=== PATIENT | female | born 1980 | race American Indian/Alaskan Native ===

== ENCOUNTER 2016-11-13 02:03 | Emergency (ER) | payer MEDICARE ==
[2016-11-13 02:42] VITALS: BP 129/78
[2016-11-13 04:11] LABS: Bilirubin,Urine NEG (Negative); Blood,Urine SM (Negative); Ketones,Urine TR mg/dL (Negative); Leukocyte Esterase,Urine NEG (Negative); Mucus,Urine FEW /HPF; Nitrite,Urine NEG (Negative); Protein,Urine <15 mg/dL mg/dL (Negative); RBC,Urine < 1.0 /HPF (0.0-6.0); Urobilinogen,Urine < 2.0 mg/dL (<2.0)
[2016-11-13 04:14] LABS: Basophils % (Auto) 0.9 % (0.0-1.8); Hematocrit 40.4 % (30.3-42.9); Hemoglobin 12.7 gm/dl (10.1-14.3); Mean Corpuscular HGB Conc 32 % (30-34); Mean Corpuscular Hemoglobin 26 pg (28-32); Mean Corpuscular Volume 83 fl (79-97); Platelet Count 256 K/mm3 (140-440); Red Blood Count 4.85 M/mm3 (3.65-5.03); Red Cell Distribution Width 14.1 % (13.2-15.2); White Blood Count 8.4 K/mm3 (4.5-11.0)
[2016-11-13 04:20] LABS: Alanine Aminotransferase 7 units/L (7-56); Albumin 4.1 g/dL (3.9-5); Albumin/Globulin Ratio 1.5 %; Alkaline Phosphatase 85 units/L (35-129); Anion Gap 19 mmol/L; Bilirubin,Total 0.2 mg/dL (0.1-1.2); Blood Urea Nitrogen 8 mg/dL (7-17); Calcium 8.2 mg/dL (8.4-10.2); Carbon Dioxide 23 mmol/L (22-30); Chloride 101.1 mmol/L (98-107); Glucose 82 mg/dL (65-100); Lipase 32 units/L (13-60); Potassium 3.7 mmol/L (3.6-5.0); Sodium 139 mmol/L (137-145); Total Protein 6.9 g/dL (6.3-8.2)
--- NOTE | 2016-11-15 07:32 | ED Elopement Review ---
ED Pt Elopement review - Results review Lab results: Laboratory Tests 11/13/16 11/13/16 11/13/16 03:29 03:38 03:38 WBC 8.4 RBC 4.85 Hgb 12.7 Hct 40.4 MCV 83 MCH 26 L MCHC 32 RDW 14.1 Plt Count 256 Lymph % (Auto) 42.1 H [place] % (Auto) 9.4 H Eos % (Auto) 4.0 Baso % (Auto) 0.9 Lymph # 3.6 [place] # 0.8 Eos # 0.3 Baso # 0.1 Seg Neutrophils % 43.6 Seg Neutrophils # 3.7 Sodium 139 Potassium 3.7 Chloride 101.1 Carbon Dioxide 23 Anion Gap 19 BUN 8 Creatinine 0.8 Estimated GFR > 60 BUN/Creatinine Ratio 10.00 Glucose 82 Calcium 8.2 L Total Bilirubin 0.2 AST 12 ALT 7 Alkaline Phosphatase 85 Total Protein 6.9 Albumin 4.1 Albumin/Globulin Ratio 1.5 Lipase 32 Urine Color Yellow Urine Turbidity Clear Urine pH 6.0 Ur Specific [place] 1.014 Urine Protein <15 mg/dl Urine Glucose (UA) Neg Urine Ketones Tr Urine Blood Sm Urine Nitrite Neg Urine Bilirubin Neg Urine Urobilinogen < 2.0 Ur Leukocyte Esterase Neg Urine WBC (Auto) 2.0 Urine RBC (Auto) < 1.0 U Epithel Cells (Auto) 5.0 Urine Mucus Few - Call Back decision Pt Call Back Decision: No action required
== END 2016-11-13 03:40 | disposition left against medical advice (07) ==
LOC: ED 02:03
DX: R30.0 Dysuria (principal); F20.9 Schizophrenia, unspecified; J45.909 Unspecified asthma, uncomplicated; F17.200 Nicotine dependence, unspecified, uncomplicated; F12.90 Cannabis use, unspecified, uncomplicated; Z88.8 Allergy status to other drugs, medicaments and biological substances; Z53.21 Procedure and treatment not carried out due to patient leaving prior to being seen by health care provider
CPT/HCPCS: 36415; 80053; 81001; 83690; 85025

== ENCOUNTER 2016-11-19 18:42 | Emergency (ER) | payer MEDICARE | END 2016-11-19 20:42 | disposition left against medical advice (07) | LOC: ED 18:42 | DX: T76.22XA Child sexual abuse, suspected, initial encounter (principal); Z53.21 Procedure and treatment not carried out due to patient leaving prior to being seen by health care provider ==

== ENCOUNTER 2016-12-03 16:42 | Emergency (ER) | payer MEDICARE ==
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
[2016-12-03] MEDS ORDERED: MOTRIN PO ONE (20:01)
[2016-12-03 20:59] VITALS: BP 110/73
== END 2016-12-03 21:00 | disposition home or self-care (01) ==
LOC: ED 16:42
DX: M62.830 Muscle spasm of back (principal); M54.5 Low back pain; G89.29 Other chronic pain; M54.2 Cervicalgia; F17.200 Nicotine dependence, unspecified, uncomplicated; F20.9 Schizophrenia, unspecified; J45.909 Unspecified asthma, uncomplicated; E04.9 Nontoxic goiter, unspecified; Z88.8 Allergy status to other drugs, medicaments and biological substances
CPT/HCPCS: 99282

== ENCOUNTER 2017-03-17 05:29 | Emergency (ER) | payer MEDICARE ==
[2017-03-17 06:17] VITALS: BP 131/85
[2017-03-17 07:41] LABS: Urine Drugs of Abuse Note Disclamer
[2017-03-17 08:02] LABS: Bacteria,Urine 1+ /HPF (Negative); Bilirubin,Urine NEG (Negative); Blood,Urine NEG (Negative); Ketones,Urine TR mg/dL (Negative); Leukocyte Esterase,Urine SM (Negative); Mucus,Urine FEW /HPF; Nitrite,Urine NEG (Negative); Protein,Urine <15 mg/dL mg/dL (Negative)
== END 2017-03-17 06:59 | disposition left against medical advice (07) ==
LOC: ED 05:29
DX: Z00.8 Encounter for other general examination (principal); J45.909 Unspecified asthma, uncomplicated; F20.9 Schizophrenia, unspecified; F17.200 Nicotine dependence, unspecified, uncomplicated; Z88.8 Allergy status to other drugs, medicaments and biological substances; Z53.21 Procedure and treatment not carried out due to patient leaving prior to being seen by health care provider
CPT/HCPCS: 80307; 81001

== ENCOUNTER 2017-05-09 13:43 | Emergency (ER) | payer MEDICARE ==
[2017-05-09 13:58] VITALS: BP 145/89
--- NOTE | 2017-05-09 14:53 | XRay Report ---
LEFT KNEE: Trauma, pain. The bony architecture is intact without evidence of fracture or dislocation. No significant soft tissue abnormality is seen. IMPRESSION: Normal left knee.
[2017-05-09] MEDS ORDERED: TORADOL IM ONE (17:58)
--- NOTE | 2017-05-09 18:41 | Emergency Department Report ---
Entered by CAYETANO LEUNG, acting as scribe for ELOISA HERNANDEZ NP. ED Lower Extremity HPI - General Chief Complaint: Extremity Injury, Lower Stated Complaint: LEFT KNEE INJURY Time Seen by Provider: 05/09/17 17:27 Source: patient Mode of arrival: Ambulatory Limitations: Physical Limitation - History of Present Illness Initial Comments: This is a 37 y/o female, nontoxic, well nourished in appearance, no acute signs of distress with a PMHx of asthma, schizophrenia, and thyroid goiter presents to the ED c/o left knee pain that began this afternoon. Patient states she was running from a bee while doing community service, fell, and subsequently landed on her left knee. Rates pain a 10/10 in severity, which she describes as sharp and aching in quality. Aggravated with movement, palpation, and weight bearing, and alleviated with immobilization. Denies head trauma, LOC, numbness, tingling , fever, chills, chest pain, SOB, headache and dizziness. Allergic to aripiprazole, riseridone, ziprassidone HCl and ziprasidone mesylate. MD Complaint: knee injury (left) -: This afternoon Injury: Knee: Left Type of Injury: unknown Place: street/outdoors Severity: severe Severity scale (0 -10): 10 Improves With: immobilization Worsens With: weight bearing, movement, palpation Context: running Associated Symptoms: able to partially bear weight. denies: snap/pop sensation , swelling, numbness, tingling Treatments Prior to Arrival: cold therapy - Related Data Home Medications Medication Instructions Recorded Confirmed Last Taken Haloperidol Decanoate (Nf) [Haldol 200 mg IM QMONTH 05/18/14 06/28/15 06/03/15 Decanoate] Benztropine [Cogentin] 1 mg PO BID 06/28/15 06/28/15 Unknown Citalopram [celeXA] 20 mg PO QDAY 06/28/15 06/28/[address] [DepaKOTE DR] 500 mg PO HS 06/28/15 06/28/15 Unknown Divalproex ER [DepaKOTE ER] 250 mg PO DAILY 06/28/15 06/28/15 Unknown Haloperidol [Haldol] 2 mg PO BID 06/28/15 06/28/15 Unknown Previous Rx's Medication Instructions Recorded Last Taken Type Docusate Sodium [Colace CAP] 100 mg PO BID PRN #30 capsule 06/28/15 Unknown Rx Pramoxine 1% [Proctofoam] 1 applicatio TP 5XD PRN #1 bottle 06/28/15 Unknown Rx Acetaminophen/Codeine [Tylenol #3] 1 tab PO Q6H PRN #20 tab 11/17/15 Unknown Rx Ibuprofen [Motrin] 600 mg PO Q8H PRN #40 tablet 11/17/15 Unknown Rx Cyclobenzaprine [Flexeril 10 MG 10 mg PO TID PRN #15 tablet 12/03/16 Unknown Rx TAB] Ibuprofen [Motrin 800 MG tab] 800 mg PO TID PRN #15 tablet 12/03/16 Unknown Rx Ibuprofen [Motrin 600 MG tab] 600 mg PO Q8H PRN #30 tablet 05/09/17 Unknown Rx Allergies Allergy/AdvReac Type Severity Reaction Status Date / Time aripiprazole [From Abilify] Allergy Vomiting Verified 01/04/14 12:08 risperidone [From Risperdal] Allergy Bleeding Verified 01/04/14 12:09 ziprasidone HCl [From Geodon] Allergy Vomiting Verified 11/13/16 02:37 ziprasidone mesylate Allergy Vomiting Verified 11/13/16 02:37 [From Geodon] ED Review of Systems Comment: All other systems reviewed and negative Constitutional: denies: chills, fever Eyes: denies: eye pain, eye discharge, vision change ENT: denies: ear pain, throat pain Respiratory: denies: cough, orthopnea, shortness of breath, SOB with exertion, SOB at rest, stridor, wheezing Cardiovascular: denies: chest pain, palpitations, dyspnea on exertion, orthopnea , edema, syncope, paroxysmal nocturnal dyspnea Endocrine: no symptoms reported Gastrointestinal: denies: abdominal pain, nausea, vomiting, diarrhea Genitourinary: denies: urgency, dysuria, discharge Musculoskeletal: arthralgia (LT knee pain). denies: back pain, joint swelling, myalgia Skin: denies: rash, lesions Neurological: denies: headache, weakness, numbness, paresthesias Psychiatric: denies: anxiety, depression Hematological/Lymphatic: denies: easy bleeding, easy bruising ED Past Medical Hx - Past Medical History Previous Medical History?: Yes Hx Psychiatric Treatment: Yes (schizophrenia) Hx Asthma: Yes Additional medical history: throid goiter, ectopic 2006. back pain - Surgical History Past Surgical History?: Yes Additional Surgical History: ectopic 2006 - Family History Family history: no significant - Social History Smoking Status: Current Every Day Smoker Substance Use Type: None - Medications Home Medications: Home Medications Medication Instructions Recorded Confirmed Last Taken Type Haloperidol Decanoate (Nf) [Haldol 200 mg IM QMONTH 05/18/14 06/28/15 06/03/15 History Decanoate] Benztropine [Cogentin] 1 mg PO BID 06/28/15 06/28/15 Unknown History Citalopram [celeXA] 20 mg PO QDAY 06/28/15 06/28/[address] [DepaKOTE DR] 500 mg PO HS 06/28/15 06/28/15 Unknown History Divalproex ER [DepaKOTE ER] 250 mg PO DAILY 06/28/15 06/28/15 Unknown History Docusate Sodium [Colace CAP] 100 mg PO BID PRN #30 capsule 06/28/15 Unknown Rx Haloperidol [Haldol] 2 mg PO BID 06/28/15 06/28/15 Unknown History Pramoxine 1% [Proctofoam] 1 applicatio TP 5XD PRN #1 bottle 06/28/15 Unknown Rx Acetaminophen/Codeine [Tylenol #3] 1 tab PO Q6H PRN #20 tab 11/17/15 Unknown Rx Ibuprofen [Motrin] 600 mg PO Q8H PRN #40 tablet 11/17/15 Unknown Rx Cyclobenzaprine [Flexeril 10 MG 10 mg PO TID PRN #15 tablet 12/03/16 Unknown Rx TAB] Ibuprofen [Motrin 800 MG tab] 800 mg PO TID PRN #15 tablet 12/03/16 Unknown Rx Ibuprofen [Motrin 600 MG tab] 600 mg PO Q8H PRN #30 tablet 05/09/17 Unknown Rx ED Physical Exam - General Limitations: Physical Limitation General appearance: alert, in no apparent distress - Head Head exam: Present: atraumatic, normocephalic - Eye Eye exam: Present: normal appearance, PERRL, EOMI Pupils: Present: normal accommodation - ENT ENT exam: Present: normal exam, normal orophraynx, mucous membranes moist, TM's normal bilaterally, normal external ear exam - Neck Neck exam: Present: normal inspection, full ROM. Absent: tenderness, meningismus, lymphadenopathy, thyromegaly - Respiratory Respiratory exam: Present: normal lung sounds bilaterally. Absent: respiratory distress, wheezes, rales, rhonchi, stridor, chest wall tenderness, accessory muscle use, decreased breath sounds, prolonged expiratory - Cardiovascular Cardiovascular Exam: Present: regular rate, normal rhythm, normal heart sounds. Absent: bradycardia, tachycardia, irregular rhythm, systolic murmur, diastolic murmur, rubs, gallop - GI/Abdominal GI/Abdominal exam: Present: soft, normal bowel sounds. Absent: distended - Rectal Rectal exam: Present: deferred - Extremities Exam Extremities exam: Present: full ROM (limited and painful LT knee ROM), tenderness (LT knee), normal capillary refill. Absent: normal inspection, pedal edema, joint swelling, calf tenderness - Expanded Lower Extremity Exam Left Hip exam: Present: normal inspection, full ROM, external rotation, internal rotation, pelvic stability. Absent: tenderness, swelling, abrasion, laceration , ecchymosis, deformity, crepidus, dislocation, erythema, shortening Upper Leg exam: Present: normal inspection, full ROM. Absent: tenderness, swelling, abrasion, laceration, ecchymosis, deformity, crepidus, dislocation, erythema Knee exam: Present: full ROM (limited and painful ROM), tenderness, full knee extension. Absent: normal inspection, swelling, abrasion, laceration, ecchymosis, deformity, crepidus, dislocation, erythema, effusion, pain w/ pronation/supination, posterior draw sign, pain/laxity with valgus, pain/laxity with varus Lower Leg exam: Present: normal inspection, full ROM. Absent: tenderness, swelling, abrasion, laceration, ecchymosis, deformity, crepidus, dislocation, erythema, palpable cord, Kristina's sign Ankle exam: Present: normal inspection, full ROM. Absent: tenderness, swelling , abrasion, laceration, ecchymosis, deformity, crepidus, dislocation, erythema, anterior draw sign Foot/Toe exam: Present: normal inspection, full ROM. Absent: tenderness, swelling, abrasion, laceration, ecchymosis, deformity, crepidus, dislocation, erythema, amputation, puncture wound, foreign body, calcaneal tenderness, tenderness at base of 5th metatarsal, nail avulsion, subungual hematoma Neuro vascular tendon exam: Present: no vascular compromise. Absent: pulse deficit, abnormal cap refill, motor deficit, sensory deficit, tendon deficit, extremity cold to touch, pallor, abnormal 2-point discrimination, decreased fine /light touch, foot drop, peroneal nerve deficit, significant pain with passive ROM of distal joint Gait: Positive: observed and limited by pain - Back Exam Back exam: Present: normal inspection, full ROM. Absent: tenderness, CVA tenderness (R), CVA tenderness (L), muscle spasm, paraspinal tenderness, vertebral tenderness, rash noted - Neurological Exam Neurological exam: Present: alert, oriented X3, CN II-XII intact, normal gait ( limited gait due to left knee pain), reflexes normal. Absent: motor sensory deficit - Psychiatric Psychiatric exam: Present: normal affect, normal mood - Skin Skin exam: Present: warm, dry, intact. Absent: rash ED Course Vital Signs 05/09/17 13:54 Temperature 98.9 F Pulse Rate 92 H Respiratory 24 Rate Blood Pressure 145/89 O2 Sat by Pulse 99 Oximetry - Reevaluation(s) Reevaluation #1: 05/09/17 18:16 Patient is able to speak in full sentences with no signs of distress noted. ED Lower Extremity MDM - Medical Decision Making ED course; this is a 37-year-old female that presents with left knee strain 1- patient was examined myself. Patient received x-ray of left knee with normal findings dictated by Dr. Atwood. Patient received Toradol 60 mg IM the ED for pain. Patient was notified of x-ray findings with no further questions or by the patient. 2- patient receive any immobilizer and crutches. Crutches has been educated by the nurse. 3- patient received ibuprofen at the time of discharge 4- patient was instructed to follow-up with a orthopedic doctor in 3-5 days or symptoms such as joint swelling, joint redness, numbness, tingling, fever, chills, chest pain, shortness of breath, nausea or vomiting return to emergency room as soon as possible. 5- patient was also instructed to rest, elevate, ice extremity. 6- At time time of discharge, the patient does not seem toxic or ill in appearance. No acute signs of distress noted. Patient agrees to discharge treatment plan of care. No further questions noted by the patient. ED Disposition Clinical Impression: Knee strain Qualifiers: Encounter type: initial encounter Laterality: left Qualified Code(s): S86.912A - Strain of unspecified muscle(s) and tendon(s) at lower leg level, left leg, initial encounter Disposition: TO HOME OR SELFCARE Is pt being admited?: No Does the pt Need Aspirin: No Condition: Stable Instructions: Knee Pain (ED), Knee Immobilizer (ED), Crutch Instructions (ED), Ibuprofen (By mouth) Additional Instructions: follow-up with a orthopedic doctor in 3-5 days or symptoms such as joint swelling, joint redness, numbness, tingling, fever, chills, chest pain, shortness of breath, nausea or vomiting return to emergency room as soon as possible. Rest, elevate, and ice extremity Prescriptions: Ibuprofen [Motrin 600 MG tab] 600 mg PO Q8H PRN #30 tablet PRN Reason: Pain Referrals: PRIMARY CAREMD [Primary Care Provider] - 3-5 Days HOMERO WRIGHT MD [Staff Physician] - 3-5 Days [facility] [Outside] - 3-5 Days [facility] [Outside] - 3-5 Days MEHDI AJ MD [Staff Physician] - 3-5 Days Forms: Work/School Release Form(ED) This documentation as recorded by the XOCHITL alcocer JASMINE,accurately reflects the service I personally performed and the decisions made by ,ELOISA HERNANDEZ, BUDDHIST MONK.
== END 2017-05-09 18:45 | disposition home or self-care (01) ==
LOC: ED 13:43
DX: S86.912A Strain of unspecified muscle(s) and tendon(s) at lower leg level, left leg, initial encounter (principal); J45.909 Unspecified asthma, uncomplicated; F20.9 Schizophrenia, unspecified; F17.200 Nicotine dependence, unspecified, uncomplicated; Z88.8 Allergy status to other drugs, medicaments and biological substances; W18.00XA Striking against unspecified object with subsequent fall, initial encounter; Y93.89 Activity, other specified; Y92.89 Other specified places as the place of occurrence of the external cause; Y99.8 Other external cause status
CPT/HCPCS: 29505; 73562; 96372; 99283; J1885

== ENCOUNTER 2017-07-13 01:13 | Emergency (ER) | payer MEDICARE | END 2017-07-13 01:32 | disposition left against medical advice (07) | LOC: ED 01:13 | DX: H53.8 Other visual disturbances (principal); Z53.21 Procedure and treatment not carried out due to patient leaving prior to being seen by health care provider ==

== ENCOUNTER 2017-09-26 00:23 | Emergency (ER) | payer MEDICARE | END 2017-09-26 01:00 | disposition left against medical advice (07) | LOC: ED 00:23 | DX: R10.9 Unspecified abdominal pain (principal); Z53.21 Procedure and treatment not carried out due to patient leaving prior to being seen by health care provider ==

== ENCOUNTER 2017-09-26 07:36 | Emergency (ER) | payer MEDICARE ==
[2017-09-26 07:50] VITALS: BP 125/85
[2017-09-26 08:22] LABS: Bilirubin,Urine NEG (Negative); Blood,Urine NEG (Negative); Color,Urine Yellow (Yellow); Mucus,Urine FEW /HPF; Nitrite,Urine NEG (Negative); Protein,Urine <15 mg/dL mg/dL (Negative); Urobilinogen,Urine < 2.0 mg/dL (<2.0)
[2017-09-26 08:23] LABS: HCG Qualitative,Urine Negative (Negative)
[2017-09-26 08:31] LABS: Basophils # (Auto) 0.1 K/mm3 (0.0-0.1); Basophils % (Auto) 0.7 % (0.0-1.8); Eosinophils # (Auto) 0.2 K/mm3 (0.0-0.4); Eosinophils % (Auto) 2.6 % (0.0-4.3); Hemoglobin 13.4 gm/dl (10.1-14.3); Lymphocytes # (Auto) 3.1 K/mm3 (1.2-5.4); Lymphocytes % (Auto) 39.3 % (13.4-35.0); Mean Corpuscular HGB Conc 33 % (30-34); Mean Corpuscular Hemoglobin 27 pg (28-32); Mean Corpuscular Volume 83 fl (79-97); Monocytes # (Auto) 0.7 K/mm3 (0.0-0.8); Monocytes % (Auto) 9.4 % (0.0-7.3); Platelet Count 251 K/mm3 (140-440); Red Blood Count 4.97 M/mm3 (3.65-5.03); Red Cell Distribution Width 14.6 % (13.2-15.2)
[2017-09-26 08:33] LABS: BUN/Creatinine Ratio 11; Blood Urea Nitrogen 8 mg/dL (7-17); Calcium 8.8 mg/dL (8.4-10.2); Hemolysis Index 6
--- NOTE | 2017-09-26 09:30 | Emergency Department Report ---
ED Psych HPI - General Chief Complaint: Psych Stated Complaint: PARASITE SUCKING BLOOD Time Seen by Provider: 09/26/17 09:18 Source: patient Mode of arrival: Ambulatory Limitations: No Limitations - History of Present Illness Initial Comments: 37-year-old female the past medical history of schizophrenia and asthma presents to the hospital chest and left arm. She denies fever, nausea, vomiting , or diarrhea. Patient's been compliant with her in the [place] shot for schizophrenia last dose provided on September 10. Patient hears voices all the time he denies any acute changes. Patient denies suicidal or homicidal ideation. Patient was here last night with similar symptoms but eloped prior to evaluation. Patient feels like she needs surgery to get rid of the parasites. - Related Data Home Medications Medication Instructions Recorded Confirmed Last Taken Haloperidol Decanoate (Nf) [Haldol 200 mg IM QMONTH 05/18/14 06/28/15 06/03/15 Decanoate] Benztropine [Cogentin] 1 mg PO BID 06/28/15 06/28/15 Unknown Citalopram [celeXA] 20 mg PO QDAY 06/28/15 06/28/[address] [DepaKOTE DR] 500 mg PO HS 06/28/15 06/28/15 Unknown Divalproex ER [DepaKOTE ER] 250 mg PO DAILY 06/28/15 06/28/15 Unknown Haloperidol [Haldol] 2 mg PO BID 06/28/15 06/28/15 Unknown Previous Rx's Medication Instructions Recorded Last Taken Type Docusate Sodium [Colace CAP] 100 mg PO BID PRN #30 capsule 06/28/15 Unknown Rx Pramoxine 1% [Proctofoam] 1 applicatio TP 5XD PRN #1 bottle 06/28/15 Unknown Rx Acetaminophen/Codeine [Tylenol #3] 1 tab PO Q6H PRN #20 tab 11/17/15 Unknown Rx Ibuprofen [Motrin] 600 mg PO Q8H PRN #40 tablet 11/17/15 Unknown Rx Cyclobenzaprine [Flexeril 10 MG 10 mg PO TID PRN #15 tablet 12/03/16 Unknown Rx TAB] Ibuprofen [Motrin 800 MG tab] 800 mg PO TID PRN #15 tablet 12/03/16 Unknown Rx Ibuprofen [Motrin 600 MG tab] 600 mg PO Q8H PRN #30 tablet 05/09/17 Unknown Rx Allergies Allergy/AdvReac Type Severity Reaction Status Date / Time aripiprazole [From Abilify] Allergy Vomiting Verified 01/04/14 12:08 risperidone [From Risperdal] Allergy Bleeding Verified 01/04/14 12:09 ziprasidone HCl [From Geodon] Allergy Vomiting Verified 11/13/16 02:37 ziprasidone mesylate Allergy Vomiting Verified 11/13/16 02:37 [From Geodon] ED Review of Systems ROS: Stated complaint: PARASITE SUCKING BLOOD Other details as noted in HPI Comment: All other systems reviewed and negative Other: Constitutional: No fevers chills Eyes: No eye pain visual changes ENT: No ear pain or throat pain Neck: Denies pain Respiratory: Denies cough wheezing shortness of breath Cardiovascular: Denies palpitations, syncope GI: Denies abdominal pain, nausea, vomiting, diarrhea : Denies dysuria, Musculoskeletal: Denies back pain, joint swelling Skin: Denies rash, lesions, erythema Neurologic: Denies headache, numbness, weakness Psychiatric: as per hpi ED Past Medical Hx - Past Medical History Previous Medical History?: Yes Hx Psychiatric Treatment: Yes (schizophrenia) Hx Asthma: Yes Additional medical history: thyroid goiter, ectopic 2006. back pain, Anemia - Surgical History Past Surgical History?: Yes Additional Surgical History: ectopic 2006 - Social History Smoking Status: Current Every Day Smoker Substance Use Type: Alcohol, Marijuana, Prescribed - Medications Home Medications: Home Medications Medication Instructions Recorded Confirmed Last Taken Type Haloperidol Decanoate (Nf) [Haldol 200 mg IM QMONTH 05/18/14 06/28/15 06/03/15 History Decanoate] Benztropine [Cogentin] 1 mg PO BID 06/28/15 06/28/15 Unknown History Citalopram [celeXA] 20 mg PO QDAY 06/28/15 06/28/[address] [DepaKOTE DR] 500 mg PO HS 06/28/15 06/28/15 Unknown History Divalproex ER [DepaKOTE ER] 250 mg PO DAILY 06/28/15 06/28/15 Unknown History Docusate Sodium [Colace CAP] 100 mg PO BID PRN #30 capsule 06/28/15 Unknown Rx Haloperidol [Haldol] 2 mg PO BID 06/28/15 06/28/15 Unknown History Pramoxine 1% [Proctofoam] 1 applicatio TP 5XD PRN #1 bottle 06/28/15 Unknown Rx Acetaminophen/Codeine [Tylenol #3] 1 tab PO Q6H PRN #20 tab 11/17/15 Unknown Rx Ibuprofen [Motrin] 600 mg PO Q8H PRN #40 tablet 11/17/15 Unknown Rx Cyclobenzaprine [Flexeril 10 MG 10 mg PO TID PRN #15 tablet 12/03/16 Unknown Rx TAB] Ibuprofen [Motrin 800 MG tab] 800 mg PO TID PRN #15 tablet 12/03/16 Unknown Rx Ibuprofen [Motrin 600 MG tab] 600 mg PO Q8H PRN #30 tablet 05/09/17 Unknown Rx ED Physical Exam - General Limitations: No Limitations - Other Other exam information: General: No limitations, patient is alert in no acute distress Head exam: Atraumatic, normocephalic Eyes exam: Normal appearance ENT: Moist mucous membrane, normal oropharynx Neck exam: Normal inspection, full range of motion Respiratory exam: Clear to auscultation bilateral, no wheezes, rales, crackles Cardiovascular: Normal rate and rhythm, normal heart sounds Abdomen: Soft, nondistended, and nontender, with normal bowel sounds, no rebound, or guarding Extremity: Full range of motion normal inspection no deformity Back: Normal Inspection, full range of motion, no tenderness Neurologic: Alert, oriented x3, cranial nerves intact, no motor or sensory deficit Psychiatric: normal affect, normal mood Skin: Warm, dry, intact ED Course Vital Signs 09/26/17 07:46 Temperature 97.9 F Pulse Rate 93 H Respiratory 18 Rate Blood Pressure 125/85 O2 Sat by Pulse 99 Oximetry - Consultations Consultation #1: 09/26/17 09:30 Case discussed with Linda with mental health. We'll evaluate patient ED Medical Decision Making - Lab Data Result diagrams: 09/26/17 08:02 09/26/17 08:02 Lab Results 09/26/17 09/26/17 09/26/17 Range/Units 08:02 08:02 08:11 WBC 8.0 (4.5-11.0) K/mm3 RBC 4.97 (3.65-5.03) M/mm3 Hgb 13.4 (10.1-14.3) gm/dl Hct 41.0 (30.3-42.9) % MCV 83 (79-97) fl MCH 27 L (28-32) pg MCHC 33 (30-34) % RDW 14.6 (13.2-15.2) % Plt Count 251 (140-440) K/mm3 Lymph % (Auto) 39.3 H (13.4-35.0) % [place] % (Auto) 9.4 H (0.0-7.3) % Eos % (Auto) 2.6 (0.0-4.3) % Baso % (Auto) 0.7 (0.0-1.8) % Lymph # 3.1 (1.2-5.4) K/mm3 [place] # 0.7 (0.0-0.8) K/mm3 Eos # 0.2 (0.0-0.4) K/mm3 Baso # 0.1 (0.0-0.1) K/mm3 Seg Neutrophils % 48.0 (40.0-70.0) % Seg Neutrophils # 3.8 (1.8-7.7) K/mm3 Sodium 137 (137-145) mmol/L Potassium 3.9 (3.6-5.0) mmol/L Chloride 100.7 (98-107) mmol/L Carbon Dioxide 22 (22-30) mmol/L Anion Gap 18 mmol/L BUN 8 (7-17) mg/dL Creatinine 0.7 (0.7-1.2) mg/dL Estimated GFR > 60 ml/min BUN/Creatinine Ratio 11 % Glucose 89 (65-100) mg/dL Calcium 8.8 (8.4-10.2) mg/dL Urine Color Yellow (Yellow) Urine Turbidity Clear (Clear) Urine pH 7.0 (5.0-7.0) Ur Specific [place] 1.013 (1.003-1.030) Urine Protein <15 mg/dl (Negative) mg/dL Urine Glucose (UA) Neg (Negative) mg/dL Urine Ketones Neg (Negative) mg/dL Urine Blood Neg (Negative) Urine Nitrite Neg (Negative) Urine Bilirubin Neg (Negative) Urine Urobilinogen < 2.0 (<2.0) mg/dL Ur Leukocyte Esterase Neg (Negative) Urine WBC (Auto) 2.0 (0.0-6.0) /HPF Urine RBC (Auto) 5.0 (0.0-6.0) /HPF U Epithel Cells (Auto) 4.0 (0-13.0) /HPF Urine Mucus Few /HPF Urine HCG, Qual Negative (Negative) - Medical Decision Making Patient is alert and oriented. Goal oriented. Station needs to leave to go pay her bills. Mental health consultation and treated patient does not have any acute suicidal homicidal ideation therefore does not require a 1013. Patient refused chest x-ray. EKG canceled since patient does not have chest pain at this time. Symptoms are related to her delusions about parasites and no actual pain reported. Patient having delusions about parasites. Placed a call her on psychiatrist and establish follow-up. UDS and alcohol level pending since it is down due to maintenance. Patient does not appear to be acutely intoxicated and therefore will be discharged. She denies alcohol or drug - Differential Diagnosis delusions, psychosis, infection, schizophrenia Critical Care Time: No Critical care attestation.: If time is entered above; I have spent that time in minutes in the direct care of this critically ill patient, excluding procedure time. ED Disposition Clinical Impression: Schizophrenia, Delusions of parasitosis Disposition: DC-01 TO HOME OR SELFCARE Is pt being admited?: No Does the pt Need Aspirin: No Condition: Stable Instructions: Schizophrenia (ED) Additional Instructions: Continue your current outpatient psychiatric treatment. Contact your psychiatrist for more urgent follow-up. Please return if symptoms worsen as indicated by your discharge instructions Referrals: your, psychiatrist [Other] - 2-3 Days Time of Disposition: 10:17
[2017-09-26 11:01] LABS: Amphetamine Screen,Urine PRESUMPTIVE NEGATIVE; Benzodiazepines Screen,Urine PRESUMPTIVE NEGATIVE; Cocaine Screen,Urine PRESUMPTIVE NEGATIVE; Methadone Screen,Urine PRESUMPTIVE NEGATIVE; Opiate Screen,Urine PRESUMPTIVE NEGATIVE
[2017-09-26 11:13] LABS: Cannabinoid Screen,Urine PRESUMPTIVE POSITIVE
== END 2017-09-26 10:45 | disposition home or self-care (01) ==
LOC: ED 07:36
DX: F20.9 Schizophrenia, unspecified (principal); F22 Delusional disorders; J45.909 Unspecified asthma, uncomplicated; F12.10 Cannabis abuse, uncomplicated; F17.200 Nicotine dependence, unspecified, uncomplicated; Z88.8 Allergy status to other drugs, medicaments and biological substances
CPT/HCPCS: 36415; 80048; 80307; 81001; 81025; 85025; 99284; G0480; 80320

== ENCOUNTER 2017-10-04 06:10 | Emergency (ER) | payer MEDICARE ==
[2017-10-04 07:27] LABS: Basophils # (Auto) 0.1 K/mm3 (0.0-0.1); Basophils % (Auto) 0.7 % (0.0-1.8); Eosinophils # (Auto) 0.2 K/mm3 (0.0-0.4); Eosinophils % (Auto) 2.8 % (0.0-4.3); Hemoglobin 12.8 gm/dl (10.1-14.3); Lymphocytes # (Auto) 2.6 K/mm3 (1.2-5.4); Lymphocytes % (Auto) 32.2 % (13.4-35.0); Mean Corpuscular HGB Conc 33 % (30-34); Mean Corpuscular Hemoglobin 27 pg (28-32); Mean Corpuscular Volume 84 fl (79-97); Monocytes # (Auto) 0.9 K/mm3 (0.0-0.8); Monocytes % (Auto) 11.6 % (0.0-7.3); Platelet Count 222 K/mm3 (140-440); Red Blood Count 4.67 M/mm3 (3.65-5.03); Red Cell Distribution Width 15.7 % (13.2-15.2)
[2017-10-04 07:45] LABS: BUN/Creatinine Ratio 9; Blood Urea Nitrogen 7 mg/dL (7-17); Calcium 8.4 mg/dL (8.4-10.2); Hemolysis Index 3
--- NOTE | 2017-10-04 10:30 | Emergency Department Report ---
ED General Adult HPI - General Chief complaint: Psych Stated complaint: MH EVAL Time Seen by Provider: 10/04/17 09:57 Source: patient, EMS (ems notes not available at time of chart dictation), RN notes reviewed, old records reviewed Mode of arrival: Ambulatory Limitations: No Limitations - History of Present Illness Initial comments: This is a 37-year-old female, the patient is previously unknown to this provider , has a past medical history of psychiatric disease, and presents to the ER with a complaint of anxiety and hallucinations. The patient denies headache, neck pain, chest pain, abdominal pain, shortness of breath, irritative urinary symptoms. She denies overdose, she denies homicidality, she denies suicidality. She reports that she contacted 911 "because I panicked." Her symptoms are resolved, they do not radiate anywhere, they did not have any exacerbating factors, and they were relieved without intervention. -: Sudden Severity scale (0 -10): 0 Consistency: now resolved Improves with: none Worsens with: none Associated Symptoms: denies: confusion, chest pain, cough, diaphoresis, fever/ chills, headaches, loss of appetite, malaise, nausea/vomiting, rash, seizure, shortness of breath, syncope, weakness - Related Data Home Medications Medication Instructions Recorded Confirmed Last Taken Haloperidol Decanoate (Nf) [Haldol 200 mg IM QMONTH 05/18/14 06/28/15 06/03/15 Decanoate] Benztropine [Cogentin] 1 mg PO BID 06/28/15 06/28/15 Unknown Citalopram [celeXA] 20 mg PO QDAY 06/28/15 06/28/[address] [DepaKOTE DR] 500 mg PO HS 06/28/15 06/28/15 Unknown Divalproex ER [DepaKOTE ER] 250 mg PO DAILY 06/28/15 06/28/15 Unknown Haloperidol [Haldol] 2 mg PO BID 06/28/15 06/28/15 Unknown Previous Rx's Medication Instructions Recorded Last Taken Type Docusate Sodium [Colace CAP] 100 mg PO BID PRN #30 capsule 06/28/15 Unknown Rx Pramoxine 1% [Proctofoam] 1 applicatio TP 5XD PRN #1 bottle 06/28/15 Unknown Rx Acetaminophen/Codeine [Tylenol #3] 1 tab PO Q6H PRN #20 tab 11/17/15 Unknown Rx Ibuprofen [Motrin] 600 mg PO Q8H PRN #40 tablet 11/17/15 Unknown Rx Cyclobenzaprine [Flexeril 10 MG 10 mg PO TID PRN #15 tablet 12/03/16 Unknown Rx TAB] Ibuprofen [Motrin 800 MG tab] 800 mg PO TID PRN #15 tablet 12/03/16 Unknown Rx Ibuprofen [Motrin 600 MG tab] 600 mg PO Q8H PRN #30 tablet 05/09/17 Unknown Rx Allergies Allergy/AdvReac Type Severity Reaction Status Date / Time aripiprazole [From Abilify] Allergy Vomiting Verified 10/04/17 07:08 risperidone [From Risperdal] Allergy Bleeding Verified 10/04/17 07:08 ziprasidone HCl [From Geodon] Allergy Vomiting Verified 10/04/17 07:08 ziprasidone mesylate Allergy Vomiting Verified 10/04/17 07:08 [From Geodon] ED Review of Systems ROS: Stated complaint: MH EVAL Other details as noted in HPI ED Past Medical Hx - Past Medical History Hx Psychiatric Treatment: Yes (schizophrenia) Hx Asthma: Yes Additional medical history: thyroid goiter, ectopic 2006. back pain, Anemia - Surgical History Additional Surgical History: ectopic 2006 - Social History Smoking Status: Current Every Day Smoker - Medications Home Medications: Home Medications Medication Instructions Recorded Confirmed Last Taken Type Haloperidol Decanoate (Nf) [Haldol 200 mg IM QMONTH 05/18/14 06/28/15 06/03/15 History Decanoate] Benztropine [Cogentin] 1 mg PO BID 06/28/15 06/28/15 Unknown History Citalopram [celeXA] 20 mg PO QDAY 06/28/15 06/28/[address] [DepaKOTE DR] 500 mg PO HS 06/28/15 06/28/15 Unknown History Divalproex ER [DepaKOTE ER] 250 mg PO DAILY 06/28/15 06/28/15 Unknown History Docusate Sodium [Colace CAP] 100 mg PO BID PRN #30 capsule 06/28/15 Unknown Rx Haloperidol [Haldol] 2 mg PO BID 06/28/15 06/28/15 Unknown History Pramoxine 1% [Proctofoam] 1 applicatio TP 5XD PRN #1 bottle 06/28/15 Unknown Rx Acetaminophen/Codeine [Tylenol #3] 1 tab PO Q6H PRN #20 tab 11/17/15 Unknown Rx Ibuprofen [Motrin] 600 mg PO Q8H PRN #40 tablet 11/17/15 Unknown Rx Cyclobenzaprine [Flexeril 10 MG 10 mg PO TID PRN #15 tablet 12/03/16 Unknown Rx TAB] Ibuprofen [Motrin 800 MG tab] 800 mg PO TID PRN #15 tablet 12/03/16 Unknown Rx Ibuprofen [Motrin 600 MG tab] 600 mg PO Q8H PRN #30 tablet 05/09/17 Unknown Rx ED Physical Exam - General Limitations: No Limitations General appearance: alert, in no apparent distress - Head Head exam: Present: atraumatic, normocephalic - Eye Eye exam: Present: normal appearance, PERRL, EOMI, other (visual acuity intact to finger counting, color perception, reading at a close distance). Absent: nystagmus - ENT ENT exam: Present: normal exam, normal orophraynx, mucous membranes moist, normal external ear exam - Neck Neck exam: Present: normal inspection, full ROM - Respiratory Respiratory exam: Present: normal lung sounds bilaterally. Absent: respiratory distress - Cardiovascular Cardiovascular Exam: Present: regular rate, normal rhythm, normal heart sounds. Absent: bradycardia, tachycardia, irregular rhythm, systolic murmur, diastolic murmur, rubs, gallop - GI/Abdominal GI/Abdominal exam: Present: soft, normal bowel sounds. Absent: distended, tenderness, guarding, rebound, rigid, pulsatile mass - Extremities Exam Extremities exam: Present: normal inspection, full ROM, normal capillary refill. Absent: tenderness, pedal edema, joint swelling, calf tenderness - Back Exam Back exam: Present: normal inspection, full ROM. Absent: tenderness, CVA tenderness (R), paraspinal tenderness, vertebral tenderness - Neurological Exam Neurological exam: Present: alert, oriented X3, CN II-XII intact, normal gait, other (Extraocular movements intact. Tongue midline. No facial droop. Facial sensation intact to light touch in the V1, V2, V3 distribution bilaterally. 5 and 5 strength in 4 extremities.. Sensation is intact to light touch in 4 extremities.). Absent: motor sensory deficit - Psychiatric Psychiatric exam: Present: anxious. Absent: homicidal ideation, suicidal ideation - Skin Skin exam: Present: warm, dry, intact, normal color. Absent: rash ED Course Vital Signs 10/04/17 07:00 Temperature 98 F Pulse Rate 100 H Respiratory 20 Rate Blood Pressure 146/106 [Left] O2 Sat by Pulse 99 Oximetry ED Medical Decision Making - Lab Data Result diagrams: 10/04/17 07:00 10/04/17 07:00 Vital Signs 10/04/17 07:00 Temperature 98 F Pulse Rate 100 H Respiratory 20 Rate Blood Pressure 146/106 [Left] O2 Sat by Pulse 99 Oximetry Labs 10/04/17 10/04/17 10/04/17 07:00 07:00 07:00 WBC 8.2 RBC 4.67 Hgb 12.8 Hct 39.0 MCV 84 MCH 27 L MCHC 33 RDW 15.7 H Plt Count 222 Lymph % (Auto) 32.2 [place] % (Auto) 11.6 H Eos % (Auto) 2.8 Baso % (Auto) 0.7 Lymph # 2.6 [place] # 0.9 H Eos # 0.2 Baso # 0.1 Seg Neutrophils % 52.7 Seg Neutrophils # 4.3 Sodium 141 Potassium 3.9 Chloride 106.1 Carbon Dioxide 21 L Anion Gap 18 BUN 7 Creatinine 0.8 Estimated GFR > 60 BUN/Creatinine Ratio 9 Glucose 92 Calcium 8.4 Total Creatine Kinase HCG, Quant Salicylates Valproic Acid Plasma/Serum Alcohol < 0.01 10/04/17 10/04/17 10/04/17 07:00 10:10 10:10 WBC RBC Hgb Hct MCV MCH MCHC RDW Plt Count Lymph % (Auto) [place] % (Auto) Eos % (Auto) Baso % (Auto) Lymph # [place] # Eos # Baso # Seg Neutrophils % Seg Neutrophils # Sodium Potassium Chloride Carbon Dioxide Anion Gap BUN Creatinine Estimated GFR BUN/Creatinine Ratio Glucose Calcium Total Creatine Kinase 159 H HCG, Quant < 2 Salicylates < 0.3 L Valproic Acid 6.8 L Plasma/Serum Alcohol - Medical Decision Making Differential diagnosis, including but not limited to: Anxiety, mood disorder, panic attack, chronic psychiatric disease Assessment and plan: 37-year-old female with complaint of anxiety and hallucinations. Her tachycardia has resolved, she is clinically sober, she walks with a steady gait, she has a GCS of 15, with an NIH score of 0, she is not homicidal, she is not suicidal, she does not require initiation of 1013 or involuntary hold. She is also seen in conjunction with the psychiatry team, who independently green that the patient does not meet 1013 criteria. Serum toxicology studies were unremarkable, patient observed in the ER for hours without clinical decompensation, she reports that she has follow-up with her psychiatrist within the next week, she will therefore be discharged, return precautions are reviewed. Critical care attestation.: If time is entered above; I have spent that time in minutes in the direct care of this critically ill patient, excluding procedure time. ED Disposition Clinical Impression: Mood disorder Disposition: DC-01 TO HOME OR SELFCARE Is pt being admited?: No Does the pt Need Aspirin: No Condition: Stable Additional Instructions: Continue current outpatient medications. Follow-up with your psychiatrist or primary care doctor within the next 2 weeks. Return to the ER right away with fevers, chills, chest pain, source of breath, fevers, confusion, intractable nausea or vomiting, inability to tolerate liquid feeds, new, worsening or different symptoms. Referrals: GEOVANNA MOORE MD [Primary Care Provider] - 3-5 Days
[2017-10-04 11:29] VITALS: BP 134/87
== END 2017-10-04 12:53 | disposition home or self-care (01) ==
LOC: EEVIPCON 06:10 → ED 06:10
DX: F39 Unspecified mood [affective] disorder (principal); F20.9 Schizophrenia, unspecified; F41.9 Anxiety disorder, unspecified; J45.909 Unspecified asthma, uncomplicated; F17.200 Nicotine dependence, unspecified, uncomplicated; Z86.2 Personal history of diseases of the blood and blood-forming organs and certain disorders involving the immune mechanism; Z88.8 Allergy status to other drugs, medicaments and biological substances; Z79.899 Other long term (current) drug therapy
CPT/HCPCS: 36415; 80048; 80164; 82550; 84702; 85025; 99284; G0480; 80320

== ENCOUNTER 2017-10-14 02:54 | Emergency (ER) | payer MEDICARE ==
[2017-10-14 03:25] VITALS: BP 136/85
[2017-10-14 04:49] LABS: Basophils # (Auto) 0.1 K/mm3 (0.0-0.1); Basophils % (Auto) 0.8 % (0.0-1.8); Eosinophils # (Auto) 0.2 K/mm3 (0.0-0.4); Eosinophils % (Auto) 2.2 % (0.0-4.3); Hematocrit 43.4 % (30.3-42.9); Hemoglobin 13.9 gm/dl (10.1-14.3); Lymphocytes # (Auto) 1.9 K/mm3 (1.2-5.4); Lymphocytes % (Auto) 26.6 % (13.4-35.0); Mean Corpuscular HGB Conc 32 % (30-34); Mean Corpuscular Hemoglobin 27 pg (28-32); Mean Corpuscular Volume 84 fl (79-97); Platelet Count 211 K/mm3 (140-440); Red Blood Count 5.19 M/mm3 (3.65-5.03); Red Cell Distribution Width 15.4 % (13.2-15.2)
[2017-10-14 05:01] LABS: BUN/Creatinine Ratio 11; Blood Urea Nitrogen 9 mg/dL (7-17); Calcium 9.1 mg/dL (8.4-10.2); Hemolysis Index 3
[2017-10-14 08:18] LABS: Bilirubin,Urine NEG (Negative); Blood,Urine NEG (Negative); Color,Urine Colorless (Yellow); Nitrite,Urine NEG (Negative); Protein,Urine <15 mg/dL mg/dL (Negative); RBC,Urine < 1.0 /HPF (0.0-6.0); Urobilinogen,Urine < 2.0 mg/dL (<2.0)
[2017-10-14 08:23] LABS: WBC,Urine < 1.0 /HPF (0.0-6.0)
[2017-10-14 11:55] LABS: Amphetamine Screen,Urine PRESUMPTIVE NEGATIVE; Benzodiazepines Screen,Urine PRESUMPTIVE NEGATIVE; Cannabinoid Screen,Urine PRESUMPTIVE NEGATIVE; Cocaine Screen,Urine PRESUMPTIVE NEGATIVE; Methadone Screen,Urine PRESUMPTIVE NEGATIVE; Opiate Screen,Urine PRESUMPTIVE NEGATIVE
== END 2017-10-14 05:00 | disposition left against medical advice (07) ==
LOC: ED 02:54
DX: F29 Unspecified psychosis not due to a substance or known physiological condition (principal); Z53.21 Procedure and treatment not carried out due to patient leaving prior to being seen by health care provider
CPT/HCPCS: 36415; 80048; 80307; 81001; 84703; 85025; G0480; 80320

== ENCOUNTER 2017-11-17 12:53 | Emergency (ER) | payer MEDICARE ==
--- NOTE | 2017-11-17 20:13 | Emergency Department Report ---
ED Psych HPI - General Chief Complaint: Medical Clearance Stated Complaint: PSYCH Time Seen by Provider: 11/17/17 19:39 Source: patient Mode of arrival: Ambulatory - History of Present Illness Initial Comments: Patient is 37 years old female history of schizophrenia presented to the ER for evaluation of hearing voices that disturbing her live in asking him that she is very troubled. Patient though her anti-psychiatric medicine away because she think is not a good medicine. Patient denied any specific suicidal thoughts or homicidal thoughts. Associated Psychiatric Symptoms: racing thoughts History of same: Yes - Related Data Home Medications Medication Instructions Recorded Confirmed Last Taken Haloperidol Decanoate (Nf) [Haldol 200 mg IM QMONTH 05/18/14 11/17/17 06/03/15 Decanoate] Benztropine [Cogentin] 1 mg PO BID 06/28/15 11/17/17 Unknown Citalopram [celeXA] 20 mg PO QDAY 06/28/15 11/17/[address] [DepaKOTE DR] 500 mg PO HS 06/28/15 11/17/17 Unknown Divalproex ER [DepaKOTE ER] 250 mg PO DAILY 06/28/15 11/17/17 Unknown Haloperidol [Haldol] 2 mg PO BID 06/28/15 11/17/17 Unknown Previous Rx's Medication Instructions Recorded Last Taken Type Docusate Sodium [Colace CAP] 100 mg PO BID PRN #30 capsule 06/28/15 Unknown Rx Pramoxine 1% [Proctofoam] 1 applicatio TP 5XD PRN #1 bottle 06/28/15 Unknown Rx Acetaminophen/Codeine [Tylenol #3] 1 tab PO Q6H PRN #20 tab 11/17/15 Unknown Rx Ibuprofen [Motrin] 600 mg PO Q8H PRN #40 tablet 11/17/15 Unknown Rx Cyclobenzaprine [Flexeril 10 MG 10 mg PO TID PRN #15 tablet 12/03/16 Unknown Rx TAB] Ibuprofen [Motrin 800 MG tab] 800 mg PO TID PRN #15 tablet 12/03/16 Unknown Rx Ibuprofen [Motrin 600 MG tab] 600 mg PO Q8H PRN #30 tablet 05/09/17 Unknown Rx Allergies Allergy/AdvReac Type Severity Reaction Status Date / Time aripiprazole [From Abiliy] Allergy Vomiting Verified 10/04/17 07:08 risperidone [From Risperdal] Allergy Bleeding Verified 10/04/17 07:08 ziprasidone HCl [From Geodon] Allergy Vomiting Verified 10/04/17 07:08 ziprasidone mesylate Allergy Vomiting Verified 10/04/17 07:08 [From Geodon] ED Review of Systems ROS: Stated complaint: PSYCH Other details as noted in HPI Comment: All other systems reviewed and negative Constitutional: denies: chills, fever ENT: denies: throat pain, dental pain Cardiovascular: denies: chest pain, palpitations, dyspnea on exertion, orthopnea Gastrointestinal: denies: abdominal pain, nausea, vomiting, diarrhea, constipation, hematemesis Neurological: denies: headache, weakness, numbness, paresthesias, confusion Psychiatric: depression, auditory hallucinations. denies: visual hallucinations , homicidal thoughts, suicidal thoughts ED Past Medical Hx - Past Medical History Hx Psychiatric Treatment: Yes (schizophrenia) Hx Asthma: Yes Additional medical history: thyroid goiter, ectopic 2006. back pain, Anemia - Surgical History Additional Surgical History: ectopic 2006 - Social History Smoking Status: Current Every Day Smoker Substance Use Type: None - Medications Home Medications: Home Medications Medication Instructions Recorded Confirmed Last Taken Type Haloperidol Decanoate (Nf) [Haldol 200 mg IM QMONTH 05/18/14 11/17/17 06/03/15 History Decanoate] Benztropine [Cogentin] 1 mg PO BID 06/28/15 11/17/17 Unknown History Citalopram [celeXA] 20 mg PO QDAY 06/28/15 11/17/[address] [DepaKOTE DR] 500 mg PO HS 06/28/15 11/17/17 Unknown History Divalproex ER [DepaKOTE ER] 250 mg PO DAILY 06/28/15 11/17/17 Unknown History Docusate Sodium [Colace CAP] 100 mg PO BID PRN #30 capsule 06/28/15 11/17/17 Unknown Rx Haloperidol [Haldol] 2 mg PO BID 06/28/15 11/17/17 Unknown History Pramoxine 1% [Proctofoam] 1 applicatio TP 5XD PRN #1 bottle 06/28/15 11/17/17 Unknown Rx Acetaminophen/Codeine [Tylenol #3] 1 tab PO Q6H PRN #20 tab 11/17/15 11/17/17 Unknown Rx Ibuprofen [Motrin] 600 mg PO Q8H PRN #40 tablet 11/17/15 11/17/17 Unknown Rx Cyclobenzaprine [Flexeril 10 MG 10 mg PO TID PRN #15 tablet 12/03/16 11/17/17 Unknown Rx TAB] Ibuprofen [Motrin 800 MG tab] 800 mg PO TID PRN #15 tablet 12/03/16 11/17/17 Unknown Rx Ibuprofen [Motrin 600 MG tab] 600 mg PO Q8H PRN #30 tablet 05/09/17 11/17/17 Unknown Rx ED Physical Exam - General Limitations: No Limitations General appearance: alert, in no apparent distress - Head Head exam: Present: atraumatic, normocephalic, normal inspection - Eye Eye exam: Present: normal appearance, PERRL, EOMI - ENT ENT exam: Present: normal exam, normal orophraynx, mucous membranes moist - Neck Neck exam: Present: normal inspection, full ROM. Absent: tenderness, meningismus, lymphadenopathy - Respiratory Respiratory exam: Present: normal lung sounds bilaterally. Absent: respiratory distress, wheezes, rales, rhonchi, stridor, chest wall tenderness, accessory muscle use, decreased breath sounds, prolonged expiratory - Cardiovascular Cardiovascular Exam: Present: regular rate, normal rhythm, normal heart sounds - GI/Abdominal GI/Abdominal exam: Present: soft, normal bowel sounds. Absent: distended, tenderness, guarding, rebound, rigid, organomegaly, mass, bruit, pulsatile mass , hernia - Extremities Exam Extremities exam: Present: normal inspection, full ROM, normal capillary refill - Back Exam Back exam: Present: normal inspection, full ROM. Absent: tenderness, CVA tenderness (R), CVA tenderness (L), muscle spasm, paraspinal tenderness, vertebral tenderness, rash noted - Neurological Exam Neurological exam: Present: alert, oriented X3, CN II-XII intact, normal gait, reflexes normal. Absent: motor sensory deficit - Psychiatric Psychiatric exam: Present: depressed. Absent: agitated, manic, homicidal ideation, suicidal ideation - Skin Skin exam: Present: warm, intact, normal color ED Course Vital Signs 11/17/17 11/17/17 13:01 13:05 Temperature 97.9 F 97.9 F Pulse Rate 80 80 Respiratory 16 16 Rate Blood Pressure 132/88 Blood Pressure 132/88 [Right] O2 Sat by Pulse 100 100 Oximetry ED Medical Decision Making - Lab Data Result diagrams: 11/17/17 20:11 11/17/17 20:11 Critical care attestation.: If time is entered above; I have spent that time in minutes in the direct care of this critically ill patient, excluding procedure time. ED Disposition Clinical Impression: Acute psychosis Disposition: DC/TX-65 PSY HOSP/PSY UNIT Is pt being admited?: No Condition: Stable Referrals: GEOVANNA MOORE MD [Primary Care Provider] - 3-5 Days
[2017-11-17 20:35] LABS: Basophils # (Auto) 0.1 K/mm3 (0.0-0.1); Basophils % (Auto) 0.8 % (0.0-1.8); Eosinophils # (Auto) 0.3 K/mm3 (0.0-0.4); Eosinophils % (Auto) 4.2 % (0.0-4.3); Hematocrit 39.3 % (30.3-42.9); Hemoglobin 12.6 gm/dl (10.1-14.3); Lymphocytes % (Auto) 36.4 % (13.4-35.0); Mean Corpuscular HGB Conc 32 % (30-34); Mean Corpuscular Hemoglobin 27 pg (28-32); Mean Corpuscular Volume 85 fl (79-97); Monocytes # (Auto) 0.8 K/mm3 (0.0-0.8); Monocytes % (Auto) 10.1 % (0.0-7.3); Platelet Count 229 K/mm3 (140-440); Red Cell Distribution Width 15.2 % (13.2-15.2)
[2017-11-17 20:39] LABS: Alanine Aminotransferase 6 units/L (7-56); Albumin 3.6 g/dL (3.9-5); BUN/Creatinine Ratio 13; Blood Urea Nitrogen 10 mg/dL (7-17); Calcium 8.6 mg/dL (8.4-10.2); Hemolysis Index 33
[2017-11-17 21:17] LABS: Bacteria,Urine 1+ /HPF (Negative); Bilirubin,Urine NEG (Negative); Blood,Urine LG (Negative); Color,Urine Yellow (Yellow); Mucus,Urine FEW /HPF; Protein,Urine <15 mg/dL mg/dL (Negative)
[2017-11-17 21:26] LABS: Amphetamine Screen,Urine PRESUMPTIVE NEGATIVE; Benzodiazepines Screen,Urine PRESUMPTIVE NEGATIVE; Cocaine Screen,Urine PRESUMPTIVE NEGATIVE; Methadone Screen,Urine PRESUMPTIVE NEGATIVE; Opiate Screen,Urine PRESUMPTIVE NEGATIVE
[2017-11-17 21:43] LABS: Cannabinoid Screen,Urine PRESUMPTIVE POSITIVE
--- NOTE | 2017-11-18 11:27 | Consultation ---
History of Present Illness - Reason for Consult Consult date: 11/18/17 Reason for consult: Mental Health Evaluation Requesting physician: NICK OROURKE - Chief Complaint Chief complaint: "What is going on" - History of Present Psychiatric Illness 37 y.o. AA female presenting to [facility] for AH's. Today the patient is calm and cooperative, but tangent and disorganized during the assessment. She had to be redirected several time to keep her on topic. She could not explain how she ended up in the hospital. Most of her answers to questions were not logical. She was able to state that she finally slept last night after being up for 2 days. She also stated that she receive a monthly injection and take Depakote and Zyprexa, but have not been on her PO medications for weeks. She denies SI/HI 's. She could not confirm or deny AH's. The patient is positive for marijuana. Medications and Allergies Allergies Allergy/AdvReac Type Severity Reaction Status Date / Time aripiprazole [From Abilify] Allergy Vomiting Verified 10/04/17 07:08 risperidone [From Risperdal] Allergy Bleeding Verified 10/04/17 07:08 ziprasidone HCl [From Geodon] Allergy Vomiting Verified 10/04/17 07:08 ziprasidone mesylate Allergy Vomiting Verified 10/04/17 07:08 [From Geodon] Home Medications Medication Instructions Recorded Confirmed Last Taken Type Haloperidol Decanoate (Nf) [Haldol 200 mg IM QMONTH 05/18/14 11/17/17 06/03/15 History Decanoate] Benztropine [Cogentin] 1 mg PO BID 06/28/15 11/17/17 Unknown History Citalopram [celeXA] 20 mg PO QDAY 06/28/15 11/17/[address] [DepaKOTE DR] 500 mg PO HS 06/28/15 11/17/17 Unknown History Divalproex ER [DepaKOTE ER] 250 mg PO DAILY 06/28/15 11/17/17 Unknown History Docusate Sodium [Colace CAP] 100 mg PO BID PRN #30 capsule 06/28/15 11/17/17 Unknown Rx Haloperidol [Haldol] 2 mg PO BID 06/28/15 11/17/17 Unknown History Pramoxine 1% [Proctofoam] 1 applicatio TP 5XD PRN #1 bottle 06/28/15 11/17/17 Unknown Rx Acetaminophen/Codeine [Tylenol #3] 1 tab PO Q6H PRN #20 tab 11/17/15 11/17/17 Unknown Rx Ibuprofen [Motrin] 600 mg PO Q8H PRN #40 tablet 11/17/15 11/17/17 Unknown Rx Cyclobenzaprine [Flexeril 10 MG 10 mg PO TID PRN #15 tablet 12/03/16 11/17/17 Unknown Rx TAB] Ibuprofen [Motrin 800 MG tab] 800 mg PO TID PRN #15 tablet 12/03/16 11/17/17 Unknown Rx Ibuprofen [Motrin 600 MG tab] 600 mg PO Q8H PRN #30 tablet 05/09/17 11/17/17 Unknown Rx Past psychiatric history - Past Medical History Past Medical History: other (Asthma per the record) Past Surgical History: Other (Ectopic per the record) - past Psychiatric treatment and history psychiatric treatment history: She stated that she is seen by Dr Orellana for outpatient psy services. - Social History Social history: other (She could not confirm or deny being homeless) Mental Status Exam - Vital signs Last Vital Signs Temp 98.3 F 11/18/17 07:45 Pulse 93 H 11/18/17 07:45 Resp 20 11/18/17 07:47 BP 121/70 11/18/17 07:45 Pulse Ox 97 11/18/17 07:47 - Exam Narrative exam: MSE: Appearance: calm, cooperative Behavior: regular eye contact Speech: regular rate and tone Mood: "okay" Affect: flat Thought Process: tangential Thought Content: denies SI/HI's and VH's, disorganized, cannot confirm or deny AH's Motor Activity: lying in bed Cognition: A/O x3 Insight: poor Judgment: poor Results Result Diagrams: 11/17/17 20:11 11/17/17 20:11 Abnormal lab results 11/17/17 11/17/17 11/17/17 Range/Units 20:11 20:11 20:11 MCH 27 L (28-32) pg Lymph % (Auto) 36.4 H (13.4-35.0) % [place] % (Auto) 10.1 H (0.0-7.3) % ALT 6 L (7-56) units/L Albumin 3.6 L (3.9-5) g/dL Salicylates < 0.3 L (2.8-20.0) mg/dL Valproic Acid < 2.8 L (50-100) ug/mL All other labs normal. 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 Today the patient is calm and cooperative, but tangent and disorganized during the assessment. DDx: Bipolar DO, R/O Cannabis Induced Mood/Psychotic DO Recommendation/Plan: Continue 1013 with placement to inpatient psy services. Start Zyprexa 5 mg PO for psychosis/mood and Depakote 500 mg PO BID for mood. Discussed possible metabolic side effects of Zyprexa with patient.
[2017-11-19 09:41] VITALS: BP 120/77
--- NOTE | 2017-11-19 09:44 | Progress Note ---
Subjective - Reason for Consult Consult date: 11/19/17 Reason for consult: Psychiatry Follow-up - Chief Complaint Chief complaint: "Hello" 37 y.o. AA female presenting to [facility] for AH's. Today the patient is calm and cooperative, but still disorganized during the assessment. She still cannot explain her actions prior to her admission to the hospital. She rumbled on about her boyfriend, so she had to be redirected to keep her on topic. She denies SI/HI's and AVH's. She denies any side effects of her medications. 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 Today the patient is calm and cooperative, but still disorganized during the assessment. DDx: Bipolar DO, R/O Cannabis Induced Mood/Psychotic DO Recommendation/Plan: Continue 1013 with placement to [facility] today. Continue Zyprexa 5 mg PO for psychosis/mood and Depakote 500 mg PO BID for mood. Discussed possible metabolic side effects of Zyprexa with patient.
== END 2017-11-19 09:55 ==
LOC: ED 12:53 → EEVIPCON 12:53 → ED 11-19 09:55
DX: F23 Brief psychotic disorder (principal); J45.909 Unspecified asthma, uncomplicated; F17.200 Nicotine dependence, unspecified, uncomplicated
CPT/HCPCS: 36415; 80053; 80164; 80307; 81001; 84703; 85025; 99282; G0480; 80320

== ENCOUNTER 2018-01-17 06:12 | Emergency (ER) | payer MEDICARE ==
[2018-01-17 06:46] VITALS: BP 113/77
[2018-01-17 07:06] LABS: Basophils # (Auto) 0.1 K/mm3 (0.0-0.1); Basophils % (Auto) 0.9 % (0.0-1.8); Eosinophils # (Auto) 0.7 K/mm3 (0.0-0.4); Hematocrit 38.9 % (30.3-42.9); Hemoglobin 13.2 gm/dl (10.1-14.3); Lymphocytes # (Auto) 2.6 K/mm3 (1.2-5.4); Lymphocytes % (Auto) 28.2 % (13.4-35.0); Mean Corpuscular HGB Conc 34 % (30-34); Mean Corpuscular Hemoglobin 28 pg (28-32); Mean Corpuscular Volume 83 fl (79-97); Monocytes % (Auto) 10.2 % (0.0-7.3); Platelet Count 257 K/mm3 (140-440); Red Blood Count 4.68 M/mm3 (3.65-5.03); Red Cell Distribution Width 13.6 % (13.2-15.2)
[2018-01-17 07:15] LABS: Bilirubin,Urine NEG (Negative); Blood,Urine MOD (Negative); Color,Urine Yellow (Yellow); Mucus,Urine FEW /HPF; Protein,Urine <15 mg/dL mg/dL (Negative); Urobilinogen,Urine < 2.0 mg/dL (<2.0)
[2018-01-17 07:22] LABS: BUN/Creatinine Ratio 16; Blood Urea Nitrogen 13 mg/dL (7-17); Calcium 8.1 mg/dL (8.4-10.2); Hemolysis Index 14
[2018-01-17 07:24] LABS: Amphetamine Screen,Urine PRESUMPTIVE NEGATIVE; Benzodiazepines Screen,Urine PRESUMPTIVE NEGATIVE; Cannabinoid Screen,Urine PRESUMPTIVE NEGATIVE; Cocaine Screen,Urine PRESUMPTIVE NEGATIVE; Methadone Screen,Urine PRESUMPTIVE NEGATIVE; Opiate Screen,Urine PRESUMPTIVE NEGATIVE
== END 2018-01-17 08:58 | disposition left against medical advice (07) ==
LOC: ED 06:12
DX: F29 Unspecified psychosis not due to a substance or known physiological condition (principal); Z53.21 Procedure and treatment not carried out due to patient leaving prior to being seen by health care provider
CPT/HCPCS: 36415; 80048; 80307; 81001; 85025; G0480; 80320

== ENCOUNTER 2018-01-17 15:05 | Emergency (ER) | payer MEDICARE ==
[2018-01-17 15:55] LABS: Basophils # (Auto) 0.1 K/mm3 (0.0-0.1); Basophils % (Auto) 0.7 % (0.0-1.8); Eosinophils # (Auto) 0.8 K/mm3 (0.0-0.4); Eosinophils % (Auto) 8.6 % (0.0-4.3); Hematocrit 39.1 % (30.3-42.9); Hemoglobin 12.4 gm/dl (10.1-14.3); Lymphocytes # (Auto) 3.1 K/mm3 (1.2-5.4); Lymphocytes % (Auto) 34.3 % (13.4-35.0); Mean Corpuscular HGB Conc 32 % (30-34); Mean Corpuscular Hemoglobin 27 pg (28-32); Mean Corpuscular Volume 85 fl (79-97); Monocytes # (Auto) 0.5 K/mm3 (0.0-0.8); Monocytes % (Auto) 6.1 % (0.0-7.3); Platelet Count 270 K/mm3 (140-440); Red Blood Count 4.62 M/mm3 (3.65-5.03); Red Cell Distribution Width 13.8 % (13.2-15.2)
[2018-01-17 16:00] LABS: BUN/Creatinine Ratio 14; Blood Urea Nitrogen 13 mg/dL (7-17); Calcium 8.1 mg/dL (8.4-10.2); Hemolysis Index 8
[2018-01-17 16:34] LABS: Amphetamine Screen,Urine PRESUMPTIVE NEGATIVE; Benzodiazepines Screen,Urine PRESUMPTIVE NEGATIVE; Cannabinoid Screen,Urine PRESUMPTIVE NEGATIVE; Cocaine Screen,Urine PRESUMPTIVE NEGATIVE; Methadone Screen,Urine PRESUMPTIVE NEGATIVE; Opiate Screen,Urine PRESUMPTIVE NEGATIVE
[2018-01-17 16:46] LABS: Bacteria,Urine 1+ /HPF (Negative); Bilirubin,Urine NEG (Negative); Blood,Urine LG (Negative); Color,Urine Yellow (Yellow); RBC,Urine > 182.0 /HPF (0.0-6.0); Urobilinogen,Urine < 2.0 mg/dL (<2.0)
[2018-01-17] MEDS ORDERED: ATIVAN PO ONE (21:37)
--- NOTE | 2018-01-17 21:44 | Emergency Department Report ---
ED Psych HPI - General Chief Complaint: Psych Stated Complaint: MENTAL HEALTH EVALUATION Time Seen by Provider: 01/17/18 20:21 Source: patient Mode of arrival: Ambulatory - History of Present Illness Initial Comments: Ms. Low is a healthy 37-year-old female with history of schizophrenia. She states that she needs an extra shot of Invega. Her next injection scheduled for January 28 given to her by personal psychiatrist Dr. Orellana. She states that Invega helps with the sensation of worms inside of her. She denies suicidal ideation. Denies homicidal ideation. She denies hearing voices. She just desires shot of invega or inpatient placement at a psychiatric facility. MD Complaint: other -: Gradual History of same: Yes Quality: constant Improves With: medication - Related Data Home Medications Medication Instructions Recorded Confirmed Last Taken Haloperidol Decanoate (Nf) [Haldol 200 mg IM QMONTH 05/18/14 11/17/17 06/03/15 Decanoate] Benztropine [Cogentin] 1 mg PO BID 06/28/15 11/17/17 Unknown Citalopram [celeXA] 20 mg PO QDAY 06/28/15 11/17/[address] [DepaKOTE DR] 500 mg PO HS 06/28/15 11/17/17 Unknown Divalproex ER [DepaKOTE ER] 250 mg PO DAILY 06/28/15 11/17/17 Unknown Haloperidol [Haldol] 2 mg PO BID 06/28/15 11/17/17 Unknown Previous Rx's Medication Instructions Recorded Last Taken Type Docusate Sodium [Colace CAP] 100 mg PO BID PRN #30 capsule 06/28/15 Unknown Rx Pramoxine 1% [Proctofoam] 1 applicatio TP 5XD PRN #1 bottle 06/28/15 Unknown Rx Acetaminophen/Codeine [Tylenol #3] 1 tab PO Q6H PRN #20 tab 11/17/15 Unknown Rx Ibuprofen [Motrin] 600 mg PO Q8H PRN #40 tablet 11/17/15 Unknown Rx Cyclobenzaprine [Flexeril 10 MG 10 mg PO TID PRN #15 tablet 12/03/16 Unknown Rx TAB] Ibuprofen [Motrin 800 MG tab] 800 mg PO TID PRN #15 tablet 12/03/16 Unknown Rx Ibuprofen [Motrin 600 MG tab] 600 mg PO Q8H PRN #30 tablet 05/09/17 Unknown Rx Allergies Allergy/AdvReac Type Severity Reaction Status Date / Time aripiprazole [From Abilify] Allergy Vomiting Verified 10/04/17 07:08 risperidone [From Risperdal] Allergy Bleeding Verified 10/04/17 07:08 ziprasidone HCl [From Geodon] Allergy Vomiting Verified 10/04/17 07:08 ziprasidone mesylate Allergy Vomiting Verified 10/04/17 07:08 [From Geodon] ED Review of Systems ROS: Stated complaint: MENTAL HEALTH EVALUATION Other details as noted in HPI Comment: All other systems reviewed and negative Constitutional: denies: fever, malaise Respiratory: denies: cough Cardiovascular: denies: chest pain Gastrointestinal: denies: abdominal pain ED Past Medical Hx - Past Medical History Hx Psychiatric Treatment: Yes (schizophrenia) Hx Asthma: Yes Additional medical history: thyroid goiter, ectopic 2006. back pain, Anemia - Surgical History Additional Surgical History: ectopic 2006 - Social History Smoking Status: Current Every Day Smoker Substance Use Type: None - Medications Home Medications: Home Medications Medication Instructions Recorded Confirmed Last Taken Type Haloperidol Decanoate (Nf) [Haldol 200 mg IM QMONTH 05/18/14 11/17/17 06/03/15 History Decanoate] Benztropine [Cogentin] 1 mg PO BID 06/28/15 11/17/17 Unknown History Citalopram [celeXA] 20 mg PO QDAY 06/28/15 11/17/[address] [DepaKOTE DR] 500 mg PO HS 06/28/15 11/17/17 Unknown History Divalproex ER [DepaKOTE ER] 250 mg PO DAILY 06/28/15 11/17/17 Unknown History Docusate Sodium [Colace CAP] 100 mg PO BID PRN #30 capsule 06/28/15 11/17/17 Unknown Rx Haloperidol [Haldol] 2 mg PO BID 06/28/15 11/17/17 Unknown History Pramoxine 1% [Proctofoam] 1 applicatio TP 5XD PRN #1 bottle 06/28/15 11/17/17 Unknown Rx Acetaminophen/Codeine [Tylenol #3] 1 tab PO Q6H PRN #20 tab 11/17/15 11/17/17 Unknown Rx Ibuprofen [Motrin] 600 mg PO Q8H PRN #40 tablet 11/17/15 11/17/17 Unknown Rx Cyclobenzaprine [Flexeril 10 MG 10 mg PO TID PRN #15 tablet 12/03/16 11/17/17 Unknown Rx TAB] Ibuprofen [Motrin 800 MG tab] 800 mg PO TID PRN #15 tablet 12/03/16 11/17/17 Unknown Rx Ibuprofen [Motrin 600 MG tab] 600 mg PO Q8H PRN #30 tablet 05/09/17 11/17/17 Unknown Rx ED Physical Exam - General Limitations: No Limitations General appearance: alert, in no apparent distress - Head Head exam: Present: atraumatic, normocephalic - Eye Eye exam: Present: normal appearance - ENT ENT exam: Present: mucous membranes moist - Neck Neck exam: Present: normal inspection - Respiratory Respiratory exam: Present: normal lung sounds bilaterally. Absent: respiratory distress, wheezes, rales, rhonchi - Cardiovascular Cardiovascular Exam: Present: regular rate, normal rhythm, normal heart sounds. Absent: bradycardia, tachycardia, systolic murmur, diastolic murmur, rubs, gallop - GI/Abdominal GI/Abdominal exam: Present: soft, normal bowel sounds. Absent: distended, tenderness, guarding, rebound - Extremities Exam Extremities exam: Present: normal inspection - Back Exam Back exam: Present: normal inspection - Neurological Exam Neurological exam: Present: alert, oriented X3, normal gait - Psychiatric Psychiatric exam: Present: normal affect, normal mood, other (appropriate, conversational, cooperative and calm pleasant does not respond to internal stimuli). Absent: depressed, agitated, anxious, flat affect, manic, homicidal ideation, suicidal ideation - Skin Skin exam: Present: warm, dry, intact, normal color. Absent: rash ED Course Vital Signs 01/17/18 15:26 Temperature 98.6 F Pulse Rate 82 Respiratory 16 Rate Blood Pressure 129/66 O2 Sat by Pulse 99 Oximetry ED Medical Decision Making - Lab Data Result diagrams: 01/17/18 15:36 01/17/18 15:36 Laboratory Results - last 24 hr 01/17/18 01/17/18 01/17/18 15:36 15:36 15:36 WBC RBC Hgb Hct MCV MCH MCHC RDW Plt Count Lymph % (Auto) [place] % (Auto) Eos % (Auto) Baso % (Auto) Lymph # [place] # Eos # Baso # Seg Neutrophils % Seg Neutrophils # Sodium 137 Potassium 4.2 Chloride 103.8 Carbon Dioxide 23 Anion Gap 14 BUN 13 Creatinine 0.9 Estimated GFR > 60 BUN/Creatinine Ratio 14 Glucose 121 H Calcium 8.1 L Urine Color Urine Turbidity Urine pH Ur Specific [place] Urine Protein Urine Glucose (UA) Urine Ketones Urine Blood Urine Nitrite Urine Bilirubin Urine Urobilinogen Ur Leukocyte Esterase Urine WBC (Auto) Urine RBC (Auto) U Epithel Cells (Auto) Urine Bacteria (Auto) Salicylates < 0.3 L Urine Opiates Screen Urine Methadone Screen Acetaminophen < 5.0 L Ur Barbiturates Screen Ur Phencyclidine Scrn Ur Amphetamines Screen U Benzodiazepines Scrn Urine Cocaine Screen U Marijuana (THC) Screen Drugs of Abuse Note Plasma/Serum Alcohol 01/17/18 01/17/18 01/17/18 15:36 15:36 16:11 WBC 9.0 RBC 4.62 Hgb 12.4 Hct 39.1 MCV 85 MCH 27 L MCHC 32 RDW 13.8 Plt Count 270 Lymph % (Auto) 34.3 [place] % (Auto) 6.1 Eos % (Auto) 8.6 H Baso % (Auto) 0.7 Lymph # 3.1 [place] # 0.5 Eos # 0.8 H Baso # 0.1 Seg Neutrophils % 50.3 Seg Neutrophils # 4.5 Sodium Potassium Chloride Carbon Dioxide Anion Gap BUN Creatinine Estimated GFR BUN/Creatinine Ratio Glucose Calcium Urine Color Yellow Urine Turbidity Clear Urine pH 6.0 Ur Specific [place] 1.025 Urine Protein 30 mg/dl Urine Glucose (UA) Neg Urine Ketones Tr Urine Blood Lg Urine Nitrite Neg Urine Bilirubin Neg Urine Urobilinogen < 2.0 Ur Leukocyte Esterase Tr Urine WBC (Auto) 6.0 Urine RBC (Auto) > 182.0 U Epithel Cells (Auto) 1.0 Urine Bacteria (Auto) 1+ Salicylates Urine Opiates Screen Urine Methadone Screen Acetaminophen Ur Barbiturates Screen Ur Phencyclidine Scrn Ur Amphetamines Screen U Benzodiazepines Scrn Urine Cocaine Screen U Marijuana (THC) Screen Drugs of Abuse Note Plasma/Serum Alcohol < 0.01 01/17/18 16:11 WBC RBC Hgb Hct MCV MCH MCHC RDW Plt Count Lymph % (Auto) [place] % (Auto) Eos % (Auto) Baso % (Auto) Lymph # [place] # Eos # Baso # Seg Neutrophils % Seg Neutrophils # Sodium Potassium Chloride Carbon Dioxide Anion Gap BUN Creatinine Estimated GFR BUN/Creatinine Ratio Glucose Calcium Urine Color Urine Turbidity Urine pH Ur Specific [place] Urine Protein Urine Glucose (UA) Urine Ketones Urine Blood Urine Nitrite Urine Bilirubin Urine Urobilinogen Ur Leukocyte Esterase Urine WBC (Auto) Urine RBC (Auto) U Epithel Cells (Auto) Urine Bacteria (Auto) Salicylates Urine Opiates Screen Presumptive negative Urine Methadone Screen Presumptive negative Acetaminophen Ur Barbiturates Screen Presumptive negative Ur Phencyclidine Scrn Presumptive negative Ur Amphetamines Screen Presumptive negative U Benzodiazepines Scrn Presumptive negative Urine Cocaine Screen Presumptive negative U Marijuana (THC) Screen Presumptive negative Drugs of Abuse Note Disclamer Plasma/Serum Alcohol Vital Signs (72 hours) 01/17/18 15:26 Temperature 98.6 F Pulse Rate 82 Respiratory 16 Rate Blood Pressure 129/66 O2 Sat by Pulse 99 Oximetry - Medical Decision Making Mrs. Low has a history of schizophrenia. 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 The worms are cured with Invega according to the patient. She is calm. She is comfortable without distress. She does not appear to be responding to internal stimuli. She does not appear to be a harm to herself or others. She understands that she will not be placed in a psychiatric facility tonight. She understands follow-up with her psychiatrist Dr. Orellana. She requests Ativan or Seroquel prior to discharge. I have ordered Ativan 0.5 mg tablet to be given prior to discharge home. Our mental health classified advertising clerk evaluated patient. The mental health classified advertising clerk agreed that the patient only requires outpatient follow-up at this time. Critical care attestation.: If time is entered above; I have spent that time in minutes in the direct care of this critically ill patient, excluding procedure time. ED Disposition Clinical Impression: Schizophrenia, Psychosis Disposition: DC-01 TO HOME OR SELFCARE Is pt being admited?: No Does the pt Need Aspirin: No Condition: Stable Instructions: Schizophrenia (ED) Additional Instructions: Please call your psychiatrist Dr. Orellana tomorrow. Time of Disposition: 21:44
[2018-01-17 22:20] VITALS: BP 128/64
== END 2018-01-17 22:14 | disposition home or self-care (01) ==
LOC: ED 15:05
DX: F20.9 Schizophrenia, unspecified (principal); F29 Unspecified psychosis not due to a substance or known physiological condition; J45.909 Unspecified asthma, uncomplicated; D64.9 Anemia, unspecified; F17.200 Nicotine dependence, unspecified, uncomplicated
CPT/HCPCS: 36415; 80048; 80307; 81001; 85025; 99284; G0480; 80320

== ENCOUNTER 2018-02-28 20:58 | Emergency (ER) | payer MEDICARE ==
[2018-02-28 22:01] LABS: Bilirubin,Urine NEG (Negative); Blood,Urine LG (Negative); Color,Urine Red (Yellow); Urobilinogen,Urine < 2.0 mg/dL (<2.0)
[2018-02-28 22:15] LABS: BUN/Creatinine Ratio 12; Blood Urea Nitrogen 12 mg/dL (7-17); Hemolysis Index 18
[2018-02-28 22:15] LABS: Amphetamine Screen,Urine PRESUMPTIVE NEGATIVE; Benzodiazepines Screen,Urine PRESUMPTIVE NEGATIVE; Cannabinoid Screen,Urine PRESUMPTIVE NEGATIVE; Cocaine Screen,Urine PRESUMPTIVE NEGATIVE; Methadone Screen,Urine PRESUMPTIVE NEGATIVE; Opiate Screen,Urine PRESUMPTIVE NEGATIVE
[2018-02-28 22:24] LABS: Basophils # (Auto) 0.1 K/mm3 (0.0-0.1); Basophils % (Auto) 1.2 % (0.0-1.8); Eosinophils # (Auto) 0.4 K/mm3 (0.0-0.4); Hematocrit 38.4 % (30.3-42.9); Hemoglobin 12.6 gm/dl (10.1-14.3); Lymphocytes # (Auto) 2.1 K/mm3 (1.2-5.4); Lymphocytes % (Auto) 28.2 % (13.4-35.0); Mean Corpuscular HGB Conc 33 % (30-34); Mean Corpuscular Hemoglobin 27 pg (28-32); Mean Corpuscular Volume 82 fl (79-97); Monocytes # (Auto) 0.9 K/mm3 (0.0-0.8); Monocytes % (Auto) 12.2 % (0.0-7.3); Platelet Count 267 K/mm3 (140-440); Red Blood Count 4.71 M/mm3 (3.65-5.03); Red Cell Distribution Width 13.9 % (13.2-15.2)
[2018-02-28 22:29] LABS: RBC,Urine > 182.0 /HPF (0.0-6.0); WBC,Urine > 182.0 /HPF (0.0-6.0)
--- NOTE | 2018-02-28 22:34 | Emergency Department Report ---
HPI - General Chief Complaint: Overdose Time Seen by Provider: 02/28/18 22:09 - HPI HPI: 38 year-old female presents to the emergency department with a complaint of an accidental overdose of her psychiatric medication Invega. She is supposed to take 234 mg on the first week of a given month and then 156 mg on the second week in this reoccurs monthly. The patient was allegedly discharge from [facility] yesterday and received the 156 mg shot at that time. Today at about 1:30 PM she accidentally took her 234 mg injection. Physically the patient says that she feels fine but she is just nervous that she took too much of the medication. Patient has a history of schizophrenia, asthma, thyroid goiter, anemia. ED Past Medical Hx - Past Medical History Hx Psychiatric Treatment: Yes (schizophrenia) Hx Asthma: Yes Additional medical history: thyroid goiter, ectopic 2006. back pain, Anemia - Surgical History Additional Surgical History: ectopic 2006 - Social History Smoking Status: Current Every Day Smoker Substance Use Type: None - Medications Home Medications: Home Medications Medication Instructions Recorded Confirmed Last Taken Type Haloperidol Decanoate (Nf) [Haldol 200 mg IM QMONTH 05/18/14 11/17/17 06/03/15 History Decanoate] Benztropine [Cogentin] 1 mg PO BID 06/28/15 11/17/17 Unknown History Citalopram [celeXA] 20 mg PO QDAY 06/28/15 11/17/[address] [DepaKOTE DR] 500 mg PO HS 06/28/15 11/17/17 Unknown History Divalproex ER [DepaKOTE ER] 250 mg PO DAILY 06/28/15 11/17/17 Unknown History Docusate Sodium [Colace CAP] 100 mg PO BID PRN #30 capsule 06/28/15 11/17/17 Unknown Rx Haloperidol [Haldol] 2 mg PO BID 06/28/15 11/17/17 Unknown History Pramoxine 1% [Proctofoam] 1 applicatio TP 5XD PRN #1 bottle 06/28/15 11/17/17 Unknown Rx Acetaminophen/Codeine [Tylenol #3] 1 tab PO Q6H PRN #20 tab 11/17/15 11/17/17 Unknown Rx Ibuprofen [Motrin] 600 mg PO Q8H PRN #40 tablet 11/17/15 11/17/17 Unknown Rx Cyclobenzaprine [Flexeril 10 MG 10 mg PO TID PRN #15 tablet 12/03/16 11/17/17 Unknown Rx TAB] Ibuprofen [Motrin 800 MG tab] 800 mg PO TID PRN #15 tablet 12/03/16 11/17/17 Unknown Rx Ibuprofen [Motrin 600 MG tab] 600 mg PO Q8H PRN #30 tablet 05/09/17 11/17/17 Unknown Rx Nitrofurantoin Monohyd/M-Cryst 100 mg PO BID #14 capsule 03/01/18 Unknown Rx [Macrobid 100 mg Capsule] ED Review of Systems ROS: Stated complaint: OVERDOSE Other details as noted in HPI Comment: All other systems reviewed and negative Constitutional: denies: chills, fever Eyes: denies: eye pain, eye discharge, vision change ENT: denies: ear pain, throat pain Respiratory: denies: cough, shortness of breath, wheezing Cardiovascular: denies: chest pain, palpitations Gastrointestinal: denies: abdominal pain, nausea, diarrhea Genitourinary: denies: urgency, dysuria, discharge Musculoskeletal: denies: back pain, joint swelling, arthralgia Skin: denies: rash, lesions Neurological: denies: headache, weakness, paresthesias Physical Exam - Physical Exam Vital Signs: Vital Signs 02/28/18 21:12 Temperature 98.9 F Pulse Rate 109 H Respiratory 18 Rate Blood Pressure 123/79 O2 Sat by Pulse 98 Oximetry Physical Exam: GENERAL: The patient is well-developed well-nourished. HENT: Normocephalic. Atraumatic. Patient has moist mucous membranes. EYES: Extraocular motions are intact. Pupils equal reactive to light bilaterally. NECK: Supple. Trachea is midline. CHEST/LUNGS: Clear to auscultation. There is no respiratory distress noted. HEART/CARDIOVASCULAR: Regular. There is no tachycardia. There is no murmur. ABDOMEN: Abdomen is soft, nontender. Patient has normal bowel sounds. There is no abdominal distention. SKIN: Skin is warm and dry. NEURO: The patient is awake, alert, and oriented. The patient is cooperative. The patient has no focal neurologic deficits. The patient has normal speech and gait. Cranial nerves II through XII grossly intact. MUSCULOSKELETAL: There is no tenderness or deformity. There is no limitation range of motion. There is no evidence of acute injury. ED Course Vital Signs 02/28/18 21:12 Temperature 98.9 F Pulse Rate 109 H Respiratory 18 Rate Blood Pressure 123/79 O2 Sat by Pulse 98 Oximetry - Consultations Consultation #1: 02/28/18 22:33 we spoke with poison control who said that labs and EKG should be obtained. There were measured there is no prolongation of the QTC greater than 500 and that the electrolyte should be optimized to about a potassium of 4 , magnesium 2 and a calcium of 9. ED Medical Decision Making - Lab Data Result diagrams: 02/28/18 21:46 02/28/18 21:53 - EKG Data -: EKG Interpreted by Me EKG shows normal: sinus rhythm, axis, intervals, QRS complexes, ST-T waves Rate: normal - EKG Data When compared to previous EKG there are: previous EKG unavailable Interpretation: normal EKG - Medical Decision Making The patient accidentally took her 2 different doses of Invega 24 hours apart instead of one week apart. The patient denied any actual physical complaints but just more had concerns secondary to the "overdose." Poison control was contacted and the patient's EKG and labs have appear to meet all of their recommended parameters. QTC was less than 500. All of her electrolytes appear within the normal ranges. The patient had some mild tachycardia when she first arrived but that has improved. Patient's labs do show a urinary tract infection and there is some hematuria but the patient is currently on her menstrual cycle. The patient was given some antibiotics here and will be given a prescription for home. Despite her psychiatric history, she currently does not have any suicidal or homicidal ideations and does not have any signs of acute psychosis. After all the labs had returned an EKG was done, I recontacted the poison control who feels that the patient is safe for discharge home at this time. The medication has a very long half life and peak so the patient was given a list of signs or symptoms to look out for but also noticed just to come to the emergency department if she has any concerns, need for reevaluation, or with any acute distress. Otherwise she has been encouraged to follow up with her primary care physician and also to follow-up with her psychiatrist regarding how to continue dosing the Invega. - Differential Diagnosis anticholinergic syndrome, allergic reaction, psychosis Critical Care Time: No Critical care attestation.: If time is entered above; I have spent that time in minutes in the direct care of this critically ill patient, excluding procedure time. ED Disposition Clinical Impression: Overdose of antipsychotic Qualifiers: Encounter type: initial encounter Injury intent: accidental or unintentional Qualified Code(s): T43.501A - Poisoning by unspecified antipsychotics and neuroleptics, accidental (unintentional), initial encounter Disposition: TO HOME OR SELFCARE Is pt being admited?: No Condition: Stable Instructions: Urinary Tract Infection in Women (ED) Additional Instructions: Please follow-up with your primary care physician in the next few days. Please contact your psychiatrist for further dosing of the Invega. You need to return to the emergency department immediately with any concerning symptoms such as feeling unstable while walking, confusion, extreme dizziness, muscle rigidity, high fever, or with any acute distress. Take the antibiotics as prescribed for your urinary tract infection. Prescriptions: Nitrofurantoin Monohyd/M-Cryst [Macrobid 100 mg Capsule] 100 mg PO BID #14 capsule Referrals: PRIMARY CARE, [Primary Care Provider] - [facility] Time of Disposition: 00:16
[2018-02-28] MEDS ORDERED: NACL 0.9% 1000 ML 1,000 ML IV ONE (22:52)
[2018-02-28] MEDS ORDERED: ROCEPHIN/NS 1 GM/50 ML 1 GM/50 ML BAG IV ONE (22:53)
[2018-02-28] MEDS ORDERED: cefTRIAXone 1 GM in NACL 0.9% 20 ML IV ONE (23:00)
[2018-03-01] VITALS: BP 106/57
== END 2018-03-01 00:32 | disposition home or self-care (01) ==
LOC: ED 20:58
DX: T43.591A Poisoning by other antipsychotics and neuroleptics, accidental (unintentional), initial encounter (principal); J45.909 Unspecified asthma, uncomplicated; F17.200 Nicotine dependence, unspecified, uncomplicated; Y92.89 Other specified places as the place of occurrence of the external cause
CPT/HCPCS: 36415; 80048; 80307; 81001; 83735; 84703; 85025; 93005; 93010; 96374; 99283; G0480; J0696; 80320

== ENCOUNTER 2018-09-25 23:54 | Emergency (ER) | payer MEDICARE ==
[2018-09-26 01:04] LABS: Basophils # (Auto) 0.1 K/mm3 (0.0-0.1); Basophils % (Auto) 0.8 % (0.0-1.8); Eosinophils # (Auto) 0.3 K/mm3 (0.0-0.4); Eosinophils % (Auto) 4.5 % (0.0-4.3); Hematocrit 38.8 % (30.3-42.9); Hemoglobin 13.1 gm/dl (10.1-14.3); Lymphocytes # (Auto) 3.1 K/mm3 (1.2-5.4); Lymphocytes % (Auto) 40.1 % (13.4-35.0); Mean Corpuscular HGB Conc 34 % (30-34); Mean Corpuscular Volume 81 fl (79-97); Monocytes # (Auto) 0.8 K/mm3 (0.0-0.8); Platelet Count 275 K/mm3 (140-440); Red Blood Count 4.81 M/mm3 (3.65-5.03); Red Cell Distribution Width 14.6 % (13.2-15.2)
[2018-09-26 01:17] LABS: Amphetamine Screen,Urine PRESUMPTIVE NEGATIVE; Benzodiazepines Screen,Urine PRESUMPTIVE NEGATIVE; Cocaine Screen,Urine PRESUMPTIVE NEGATIVE; Methadone Screen,Urine PRESUMPTIVE NEGATIVE; Opiate Screen,Urine PRESUMPTIVE NEGATIVE
[2018-09-26 01:18] LABS: Alanine Aminotransferase 9 units/L (7-56); Albumin 3.8 g/dL (3.9-5); BUN/Creatinine Ratio 14; Blood Urea Nitrogen 11 mg/dL (7-17); Calcium 8.6 mg/dL (8.4-10.2); Hemolysis Index 5
[2018-09-26 01:26] LABS: Bacteria,Urine 1+ /HPF (Negative); Bilirubin,Urine NEG (Negative); Blood,Urine LG (Negative); Color,Urine Amber (Yellow); Mucus,Urine FEW /HPF
[2018-09-26 01:30] LABS: RBC,Urine > 182.0 /HPF (0.0-6.0)
[2018-09-26] MEDS ORDERED: K-DUR PO ONE (01:31)
--- NOTE | 2018-09-26 01:34 | Emergency Department Report ---
HPI - General Chief Complaint: Overdose Time Seen by Provider: 09/26/18 01:06 - HPI HPI: 38 year-old female presents to the emergency department with what she says is an accidental overdose of her psychiatric medications. The patient is supposed to get an Invega injection once a month. However the patient got it on the and then September 19. She says that she thought that she needed it and "and the psychiatry office gave to her. On top of this, the patient continues to take her Depakote, Haldol and the rest of her medications. Patient says that she has been getting some dizzy spells, sweating and palpitations and thinks it could be due to all these medications. She has a past medical history of asthma, schizophrenia, anemia and a thyroid goiter. She does not have a primary care physician. She is a tobacco smoker but denies any illicit drug use. ED Past Medical Hx - Past Medical History Previous Medical History?: Yes Hx Psychiatric Treatment: Yes (schizophrenia) Hx Asthma: Yes Additional medical history: thyroid goiter, ectopic 2006. back pain, Anemia - Surgical History Past Surgical History?: Yes Additional Surgical History: ectopic 2006 - Social History Smoking Status: Current Every Day Smoker Substance Use Type: None - Medications Home Medications: Home Medications Medication Instructions Recorded Confirmed Last Taken Type Haloperidol Decanoate (Nf) [Haldol 200 mg IM QMONTH 05/18/14 11/17/17 06/03/15 History Decanoate] Benztropine [Cogentin] 1 mg PO BID 06/28/15 11/17/17 Unknown History Citalopram [celeXA] 20 mg PO QDAY 06/28/15 11/17/[address] [DepaKOTE DR] 500 mg PO HS 06/28/15 11/17/17 Unknown History Divalproex ER [DepaKOTE ER] 250 mg PO DAILY 06/28/15 11/17/17 Unknown History Docusate Sodium [Colace CAP] 100 mg PO BID PRN #30 capsule 06/28/15 11/17/17 Unknown Rx Haloperidol [Haldol] 2 mg PO BID 06/28/15 11/17/17 Unknown History Pramoxine 1% [Proctofoam] 1 applicatio TP 5XD PRN #1 bottle 06/28/15 11/17/17 Unknown Rx Acetaminophen/Codeine [Tylenol #3] 1 tab PO Q6H PRN #20 tab 11/17/15 11/17/17 Unknown Rx Ibuprofen [Motrin] 600 mg PO Q8H PRN #40 tablet 11/17/15 11/17/17 Unknown Rx Cyclobenzaprine [Flexeril 10 MG 10 mg PO TID PRN #15 tablet 12/03/16 11/17/17 Unknown Rx TAB] Ibuprofen [Motrin 800 MG tab] 800 mg PO TID PRN #15 tablet 12/03/16 11/17/17 Unknown Rx Ibuprofen [Motrin 600 MG tab] 600 mg PO Q8H PRN #30 tablet 05/09/17 11/17/17 Unknown Rx Nitrofurantoin Monohyd/M-Cryst 100 mg PO BID #14 capsule 03/01/18 Unknown Rx [Macrobid 100 mg Capsule] ED Review of Systems ROS: Stated complaint: OVERDOSE Other details as noted in HPI Comment: All other systems reviewed and negative Constitutional: diaphoresis. denies: chills, malaise Eyes: denies: eye pain, vision change ENT: denies: ear pain, throat pain Respiratory: denies: cough, shortness of breath Cardiovascular: palpitations. denies: chest pain Gastrointestinal: denies: nausea, vomiting Genitourinary: denies: dysuria, discharge Musculoskeletal: denies: back pain, arthralgia Skin: denies: rash, lesions Neurological: other (dizzy). denies: headache Physical Exam - Physical Exam Vital Signs: Vital Signs 09/26/18 09/26/18 00:07 01:01 Temperature 97.6 F 98.4 F Pulse Rate 107 H 90 Respiratory 16 19 Rate Blood Pressure 134/78 Blood Pressure 131/86 [Right] O2 Sat by Pulse 98 96 Oximetry Physical Exam: GENERAL: The patient is well-developed well-nourished. HEENT: Normocephalic. Atraumatic. Patient has moist mucous membranes. EYES: Extraocular motions are intact. Pupils are equal and reactive to light bilaterally. NECK: Supple. Trachea is midline. CHEST/LUNGS: Clear to auscultation. There is no respiratory distress noted. HEART/CARDIOVASCULAR: Regular. There is no tachycardia. There is no obvious murmur. ABDOMEN: Abdomen is soft, nontender. Patient has normal bowel sounds. There is no abdominal distention. SKIN: Skin is warm and dry. NEURO: The patient is awake, alert, and oriented. The patient is cooperative. The patient has no focal neurologic deficits. The patient has normal speech. MUSCULOSKELETAL: There is no tenderness or deformity. There is no limitation range of motion. There is no evidence of acute injury. ED Course Vital Signs 09/26/18 09/26/18 00:07 01:01 Temperature 97.6 F 98.4 F Pulse Rate 107 H 90 Respiratory 16 19 Rate Blood Pressure 134/78 Blood Pressure 131/86 [Right] O2 Sat by Pulse 98 96 Oximetry ED Medical Decision Making - Lab Data Result diagrams: 09/26/18 00:40 09/26/18 00:40 - EKG Data -: EKG Interpreted by Me EKG shows normal: sinus rhythm, axis, intervals, QRS complexes, ST-T waves (nonspecific T waves throughout the inferior and lateral leads) Rate: normal - EKG Data When compared to previous EKG there are: no significant change Interpretation: unchanged when compared t (02/28/18) - Medical Decision Making This patient presents to the emergency department after having concern for taking too much of her antipsychotic medication since she took the Invega injection only 2 weeks apart instead of a month apart. All this while taking the rest of her psych meds. Patient was complaining of some dizziness, palpitations among some other nonspecific symptoms. Patient's EKG did not show any signs of ST elevation ND. There is no significant prolongation or elevation of the interval levels on the EKG. Patient's blood work was unremarkable including CBC, CMP, blood alcohol level. Urine drug screen was positive for marijuana. The patient was here for the same issue about 7 months ago. At that time we did contact poison control who suggested checking the EKG for any prolonged intervals, checking electrolytes and making sure that they are opt imized. Patient was given some potassium chloride to get her closer to a level of 4. Patient had 2 negative troponins. Vital signs stable throughout her ED course. As I went to reassess the patient again for possible discharge, I found that the patient had already eloped from the emergency department. Critical Care Time: No Critical care attestation.: If time is entered above; I have spent that time in minutes in the direct care of this critically ill patient, excluding procedure time. ED Disposition Clinical Impression: Overdose of antipsychotic Qualifiers: Encounter type: initial encounter Injury intent: accidental or unintentional Qualified Code(s): T43.501A - Poisoning by unspecified antipsychotics and neuroleptics, accidental (unintentional), initial encounter Disposition: ELOPED Is pt being admited?: No Condition: Stable Referrals: OLY LIRA MD [Primary Care Provider] - 3-5 Days Time of Disposition: 05:31
[2018-09-26 01:35] LABS: Cannabinoid Screen,Urine PRESUMPTIVE POSITIVE
[2018-09-26 05:30] VITALS: BP 115/95
== END 2018-09-26 05:17 | disposition left against medical advice (07) ==
LOC: ED 23:54
DX: T42.6X1A Poisoning by other antiepileptic and sedative-hypnotic drugs, accidental (unintentional), initial encounter (principal); R42 Dizziness and giddiness; R00.2 Palpitations; R61 Generalized hyperhidrosis; J45.909 Unspecified asthma, uncomplicated; F17.200 Nicotine dependence, unspecified, uncomplicated; Z88.8 Allergy status to other drugs, medicaments and biological substances; Y92.89 Other specified places as the place of occurrence of the external cause
CPT/HCPCS: 36415; 80053; 80307; 81001; 82550; 83735; 84484; 84703; 85025; 93005; 93010; 99284; G0480; 80320

== ENCOUNTER 2018-11-05 04:38 | Emergency (ER) | payer MEDICARE ==
[2018-11-05 05:20] LABS: BUN/Creatinine Ratio 12; Blood Urea Nitrogen 11 mg/dL (7-17); Calcium 8.7 mg/dL (8.4-10.2); Hemolysis Index 5
[2018-11-05 05:28] VITALS: BP 127/82
[2018-11-05 05:44] LABS: Amphetamine Screen,Urine PRESUMPTIVE NEGATIVE; Benzodiazepines Screen,Urine PRESUMPTIVE NEGATIVE; Cocaine Screen,Urine PRESUMPTIVE NEGATIVE; Methadone Screen,Urine PRESUMPTIVE NEGATIVE; Opiate Screen,Urine PRESUMPTIVE NEGATIVE
[2018-11-05 06:10] LABS: Bilirubin,Urine NEG (Negative); Blood,Urine NEG (Negative); Color,Urine Amber (Yellow); Protein,Urine <15 mg/dL mg/dL (Negative)
[2018-11-05 06:17] LABS: Mucus,Urine 1+ /HPF
[2018-11-05 06:22] LABS: Cannabinoid Screen,Urine PRESUMPTIVE POSITIVE
[2018-11-05 06:22] LABS: Hematocrit 40.6 % (30.3-42.9); Hemoglobin 13.2 gm/dl (10.1-14.3); Mean Corpuscular HGB Conc 32 % (30-34); Mean Corpuscular Volume 81 fl (79-97); Platelet Count 265 K/mm3 (140-440); Red Blood Count 5.03 M/mm3 (3.65-5.03)
--- NOTE | 2018-11-05 06:56 | Emergency Department Report ---
ED General Adult HPI - General Chief complaint: Psych Stated complaint: MH Time Seen by Provider: 11/05/18 06:19 Source: patient Mode of arrival: Ambulatory Limitations: No Limitations - History of Present Illness Initial comments: Patient to the emergency department for her Invega shot. Patient denies homicidal suicidal ideations but does endorse having auditory hallucinations that are not threatening. Patient states she is not able to afford the Invega shot and asked why she came to the emergency department. Patient denies chest pain, shortness breath, or headache. -: Gradual Severity scale (0 -10): 0 Consistency: constant Improves with: none Worsens with: none Associated Symptoms: denies other symptoms Treatments Prior to Arrival: none - Related Data Home Medications Medication Instructions Recorded Confirmed Last Taken Benztropine [Cogentin] 1 mg PO BID 06/28/15 11/05/[address] [DepaKOTE DR] 500 mg PO BID 06/28/15 11/05/18 Unknown Haloperidol [Haldol] 10 mg PO HS 11/05/18 11/05/18 Unknown Paliperidone Palmitate [Invega 156 mg IM QMONTH 11/05/18 11/05/18 Unknown Sustenna] diphenhydrAMINE [Benadryl CAP] 100 mg PO DAILY 11/05/18 11/05/18 Unknown Allergies Allergy/AdvReac Type Severity Reaction Status Date / Time aripiprazole [From Abilify] Allergy Vomiting Verified 10/04/17 07:08 iloperidone [From Fanapt] Allergy Unknown Verified 11/05/18 04:42 risperidone [From Risperdal] Allergy Bleeding Verified 10/04/17 07:08 ziprasidone HCl [From Geodon] Allergy Vomiting Verified 10/04/17 07:08 ziprasidone mesylate Allergy Vomiting Verified 10/04/17 07:08 [From Geodon] ED Review of Systems ROS: Stated complaint: MH Other details as noted in HPI Comment: All other systems reviewed and negative Constitutional: denies: chills, fever Eyes: denies: eye pain, eye discharge, vision change ENT: denies: ear pain, throat pain Respiratory: denies: cough, shortness of breath, wheezing Cardiovascular: denies: chest pain, palpitations Endocrine: no symptoms reported Gastrointestinal: denies: abdominal pain, nausea, diarrhea Genitourinary: denies: urgency, dysuria, discharge Musculoskeletal: denies: back pain, joint swelling, arthralgia Skin: denies: rash, lesions Neurological: denies: headache, weakness, paresthesias Psychiatric: auditory hallucinations. denies: anxiety, depression, visual hallucinations, homicidal thoughts, suicidal thoughts Hematological/Lymphatic: denies: easy bleeding, easy bruising ED Past Medical Hx - Past Medical History Previous Medical History?: Yes Hx Psychiatric Treatment: Yes (schizophrenia) Hx Asthma: Yes Additional medical history: thyroid goiter, ectopic 2006. back pain, Anemia - Surgical History Past Surgical History?: Yes Additional Surgical History: ectopic 2006 - Social History Smoking Status: Current Every Day Smoker - Medications Home Medications: Home Medications Medication Instructions Recorded Confirmed Last Taken Type Benztropine [Cogentin] 1 mg PO BID 06/28/15 11/05/[address] [DepaKOTE DR] 500 mg PO BID 06/28/15 11/05/18 Unknown History Haloperidol [Haldol] 10 mg PO HS 11/05/18 11/05/18 Unknown History Paliperidone Palmitate [Invega 156 mg IM QMONTH 11/05/18 11/05/18 Unknown History Sustenna] diphenhydrAMINE [Benadryl CAP] 100 mg PO DAILY 11/05/18 11/05/18 Unknown History ED Physical Exam - General Limitations: No Limitations General appearance: alert, in no apparent distress - Head Head exam: Present: atraumatic, normocephalic - Eye Eye exam: Present: normal appearance, PERRL, EOMI - ENT ENT exam: Present: mucous membranes moist - Neck Neck exam: Present: normal inspection - Respiratory Respiratory exam: Present: normal lung sounds bilaterally. Absent: respiratory distress, wheezes, rales - Cardiovascular Cardiovascular Exam: Present: regular rate, normal rhythm. Absent: systolic murmur, diastolic murmur, rubs, gallop - GI/Abdominal GI/Abdominal exam: Present: soft, normal bowel sounds. Absent: distended, tenderness - Extremities Exam Extremities exam: Present: normal inspection - Back Exam Back exam: Present: normal inspection - Neurological Exam Neurological exam: Present: alert, oriented X3, CN II-XII intact. Absent: motor sensory deficit - Psychiatric Psychiatric exam: Present: normal affect, normal mood. Absent: homicidal ideation, suicidal ideation - Skin Skin exam: Present: warm, dry, intact, normal color. Absent: rash ED Course Vital Signs 11/05/18 11/05/18 04:49 05:26 Temperature 98.4 F 98.4 F Pulse Rate 109 H 90 Respiratory 20 19 Rate Blood Pressure 143/85 Blood Pressure 127/82 [Left] O2 Sat by Pulse 97 100 Oximetry ED Medical Decision Making - Lab Data Result diagrams: 11/05/18 04:53 11/05/18 04:53 Lab Results 11/05/18 11/05/18 11/05/18 Range/Units 04:53 04:53 04:53 WBC (4.5-11.0) K/mm3 RBC (3.65-5.03) M/mm3 Hgb (10.1-14.3) gm/dl Hct (30.3-42.9) % MCV (79-97) fl MCH (28-32) pg MCHC (30-34) % RDW (13.2-15.2) % Plt Count (140-440) K/mm3 Lymph % (Auto) [place] % (Auto) Eos % (Auto) Baso % (Auto) Lymph # [place] # Eos # Baso # Seg Neutrophils % Seg Neutrophils # Sodium 136 L (137-145) mmol/L Potassium 3.9 (3.6-5.0) mmol/L Chloride 102.6 (98-107) mmol/L Carbon Dioxide 23 (22-30) mmol/L Anion Gap 14 mmol/L BUN 11 (7-17) mg/dL Creatinine 0.9 (0.7-1.2) mg/dL Estimated GFR > 60 ml/min BUN/Creatinine Ratio 12 % Glucose 120 H (65-100) mg/dL Calcium 8.7 (8.4-10.2) mg/dL HCG, Qual (Negative) Urine Color (Yellow) Urine Turbidity (Clear) Urine pH (5.0-7.0) Ur Specific [place] (1.003-1.030) Urine Protein (Negative) mg/dL Urine Glucose (UA) (Negative) mg/dL Urine Ketones (Negative) mg/dL Urine Blood (Negative) Urine Nitrite (Negative) Urine Bilirubin (Negative) Urine Urobilinogen (<2.0) mg/dL Ur Leukocyte Esterase (Negative) Urine WBC (Auto) (0.0-6.0) /HPF Urine RBC (Auto) (0.0-6.0) /HPF U Epithel Cells (Auto) (0-13.0) /HPF Urine Mucus /HPF Salicylates < 0.3 L (2.8-20.0) mg/dL Urine Opiates Screen Urine Methadone Screen Acetaminophen < 5.0 L (10.0-30.0) ug/mL Ur Barbiturates Screen Ur Phencyclidine Scrn Ur Amphetamines Screen U Benzodiazepines Scrn Urine Cocaine Screen U Marijuana (THC) Screen Drugs of Abuse Note Plasma/Serum Alcohol (0-0.07) % 11/05/18 11/05/18 11/05/18 Range/Units 04:53 04:53 04:53 WBC 7.3 (4.5-11.0) K/mm3 RBC 5.03 (3.65-5.03) M/mm3 Hgb 13.2 (10.1-14.3) gm/dl Hct 40.6 (30.3-42.9) % MCV 81 (79-97) fl MCH 26 L (28-32) pg MCHC 32 (30-34) % RDW 15.0 (13.2-15.2) % Plt Count 265 (140-440) K/mm3 Lymph % (Auto) Quality Control Manager [place] % (Auto) Quality Control Manager Eos % (Auto) Quality Control Manager Baso % (Auto) Quality Control Manager Lymph # Quality Control Manager [place] # Quality Control Manager Eos # Quality Control Manager Baso # Quality Control Manager Seg Neutrophils % Quality Control Manager Seg Neutrophils # Quality Control Manager Sodium (137-145) mmol/L Potassium (3.6-5.0) mmol/L Chloride (98-107) mmol/L Carbon Dioxide (22-30) mmol/L Anion Gap mmol/L BUN (7-17) mg/dL Creatinine (0.7-1.2) mg/dL Estimated GFR ml/min BUN/Creatinine Ratio % Glucose (65-100) mg/dL Calcium (8.4-10.2) mg/dL HCG, Qual Negative (Negative) Urine Color (Yellow) Urine Turbidity (Clear) Urine pH (5.0-7.0) Ur Specific [place] (1.003-1.030) Urine Protein (Negative) mg/dL Urine Glucose (UA) (Negative) mg/dL Urine Ketones (Negative) mg/dL Urine Blood (Negative) Urine Nitrite (Negative) Urine Bilirubin (Negative) Urine Urobilinogen (<2.0) mg/dL Ur Leukocyte Esterase (Negative) Urine WBC (Auto) (0.0-6.0) /HPF Urine RBC (Auto) (0.0-6.0) /HPF U Epithel Cells (Auto) (0-13.0) /HPF Urine Mucus /HPF Salicylates (2.8-20.0) mg/dL Urine Opiates Screen Urine Methadone Screen Acetaminophen (10.0-30.0) ug/mL Ur Barbiturates Screen Ur Phencyclidine Scrn Ur Amphetamines Screen U Benzodiazepines Scrn Urine Cocaine Screen U Marijuana (THC) Screen Drugs of Abuse Note Plasma/Serum Alcohol < 0.01 (0-0.07) % 11/05/18 11/05/18 Range/Units 05:24 05:24 WBC (4.5-11.0) K/mm3 RBC (3.65-5.03) M/mm3 Hgb (10.1-14.3) gm/dl Hct (30.3-42.9) % MCV (79-97) fl MCH (28-32) pg MCHC (30-34) % RDW (13.2-15.2) % Plt Count (140-440) K/mm3 Lymph % (Auto) [place] % (Auto) Eos % (Auto) Baso % (Auto) Lymph # [place] # Eos # Baso # Seg Neutrophils % Seg Neutrophils # Sodium (137-145) mmol/L Potassium (3.6-5.0) mmol/L Chloride (98-107) mmol/L Carbon Dioxide (22-30) mmol/L Anion Gap mmol/L BUN (7-17) mg/dL Creatinine (0.7-1.2) mg/dL Estimated GFR ml/min BUN/Creatinine Ratio % Glucose (65-100) mg/dL Calcium (8.4-10.2) mg/dL HCG, Qual (Negative) Urine Color [place] (Yellow) Urine Turbidity Cloudy (Clear) Urine pH 5.0 (5.0-7.0) Ur Specific [place] 1.025 (1.003-1.030) Urine Protein <15 mg/dl (Negative) mg/dL Urine Glucose (UA) Neg (Negative) mg/dL Urine Ketones Tr (Negative) mg/dL Urine Blood Neg (Negative) Urine Nitrite Neg (Negative) Urine Bilirubin Neg (Negative) Urine Urobilinogen 2.0 (<2.0) mg/dL Ur Leukocyte Esterase Mod (Negative) Urine WBC (Auto) 10.0 H (0.0-6.0) /HPF Urine RBC (Auto) 11.0 (0.0-6.0) /HPF U Epithel Cells (Auto) 41.0 H (0-13.0) /HPF Urine Mucus 1+ /HPF Salicylates (2.8-20.0) mg/dL Urine Opiates Screen Presumptive negative Urine Methadone Screen Presumptive negative Acetaminophen (10.0-30.0) ug/mL Ur Barbiturates Screen Presumptive negative Ur Phencyclidine Scrn Presumptive negative Ur Amphetamines Screen Presumptive negative U Benzodiazepines Scrn Presumptive negative Urine Cocaine Screen Presumptive negative U Marijuana (THC) Screen Presumptive positive Drugs of Abuse Note Disclamer Plasma/Serum Alcohol (0-0.07) % - Medical Decision Making Patient eloped at 6:55 AM Critical care attestation.: If time is entered above; I have spent that time in minutes in the direct care of this critically ill patient, excluding procedure time. ED Disposition Clinical Impression: Schizophrenia, Encounter for medication refill Disposition: ELOPED Is pt being admited?: No Does the pt Need Aspirin: No Condition: Stable Referrals: ARLETTE BANUELOS MD [Primary Care Provider] - 3-5 Days
[2018-11-05 07:23] LABS: Basophils # (Auto) 0.1 K/mm3 (0.0-0.1); Basophils % (Auto) 0.7 % (0.0-1.8); Eosinophils # (Auto) 0.2 K/mm3 (0.0-0.4); Eosinophils % (Auto) 2.8 % (0.0-4.3); Lymphocytes # (Auto) 2.5 K/mm3 (1.2-5.4); Monocytes # (Auto) 0.8 K/mm3 (0.0-0.8); Monocytes % (Auto) 11.5 % (0.0-7.3)
== END 2018-11-05 07:13 | disposition left against medical advice (07) ==
LOC: ED 04:38
DX: F20.9 Schizophrenia, unspecified (principal); Z76.0 Encounter for issue of repeat prescription; F17.200 Nicotine dependence, unspecified, uncomplicated; J45.909 Unspecified asthma, uncomplicated; Z86.2 Personal history of diseases of the blood and blood-forming organs and certain disorders involving the immune mechanism; Z79.899 Other long term (current) drug therapy; Z88.8 Allergy status to other drugs, medicaments and biological substances
CPT/HCPCS: 36415; 80048; 80307; 81001; 84703; 85025; 99283; G0480; 80320

== ENCOUNTER 2019-08-31 07:49 | Emergency (ER) | payer MEDICARE | END 2019-08-31 08:00 | disposition left against medical advice (07) | LOC: ED 07:49 | DX: R06.02 Shortness of breath (principal); Z53.21 Procedure and treatment not carried out due to patient leaving prior to being seen by health care provider ==

== ENCOUNTER 2020-09-08 19:35 | Emergency (ER) | payer MEDICARE | END 2020-09-08 19:56 | disposition left against medical advice (07) | LOC: ED 19:35 | DX: R73.9 Hyperglycemia, unspecified (principal); Z53.21 Procedure and treatment not carried out due to patient leaving prior to being seen by health care provider ==

== ENCOUNTER 2020-09-09 06:10 | Emergency (ER) | payer MEDICARE | END 2020-09-09 06:30 | disposition left against medical advice (07) | LOC: ED 06:10 | DX: R73.9 Hyperglycemia, unspecified (principal); Z53.21 Procedure and treatment not carried out due to patient leaving prior to being seen by health care provider | CPT/HCPCS: 82962 ==

== ENCOUNTER 2021-03-29 10:51 | Emergency (ER) | payer MEDICARE, OTHER ==
[2021-03-29 11:09] VITALS: BP 132/74
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
[2021-03-29] MEDS ORDERED: IBUPROFEN 600 MG TAB PO ONE (13:35)
== END 2021-03-29 13:46 | disposition home or self-care (01) ==
LOC: ED 10:51
DX: S13.4XXA Sprain of ligaments of cervical spine, initial encounter (principal); M25.531 Pain in right wrist; M25.532 Pain in left wrist; M54.6 Pain in thoracic spine; F20.9 Schizophrenia, unspecified; J45.909 Unspecified asthma, uncomplicated; F17.200 Nicotine dependence, unspecified, uncomplicated; Z98.890 Other specified postprocedural states; Z79.1 Long term (current) use of non-steroidal anti-inflammatories (NSAID); Z79.899 Other long term (current) drug therapy; Z88.8 Allergy status to other drugs, medicaments and biological substances; V49.49XA Driver injured in collision with other motor vehicles in traffic accident, initial encounter; Y93.89 Activity, other specified; Y92.410 Unspecified street and highway as the place of occurrence of the external cause; Y99.8 Other external cause status
CPT/HCPCS: 99282

== ENCOUNTER 2021-09-30 20:36 | Emergency (ER) | payer MEDICARE ==
[2021-10-01 02:31] VITALS: BP 142/81
--- NOTE | 2021-10-01 02:36 | Emergency Department Report ---
ED General Adult HPI - General Chief complaint: Medical Clearance Stated complaint: DIABETIC Source: patient Mode of arrival: Ambulatory Limitations: No Limitations - History of Present Illness Initial comments: Patient is a 41-year-old -Swazi female with a history of paranoid schizophrenia, anxiety and depression and asthma who presented to the ED requesting blood test after she missed menstrual cycle over 1 week ago. Patient states that her LMP was August 20, 2021 and that she did not get her cycle in August. Patient states that she suspected she may be and has had 4 home based test 3 of which were negative and only one was positive. Patient denies abdominal pain, nausea, vomiting, dizziness, syncope, fever, chills, suicidal or homicidal ideation, hallucinations, chest pain or shortness of breath. MD Complaint: wants test -: Sudden, hour(s) (12) Location: head Radiation: non-radiation Severity scale (0 -10): 0 Consistency: constant Improves with: none Worsens with: none Associated Symptoms: denies other symptoms. denies: confusion, chest pain, cough, diaphoresis, fever/chills, headaches, loss of appetite, malaise, nausea/vomiting, rash, seizure, shortness of breath, syncope, weakness Treatments Prior to Arrival: none - Related Data Home Medications Medication Instructions Recorded Confirmed Last Taken Benztropine [Cogentin] 1 mg PO BID 06/28/15 11/05/[address] [Sam ANDERSEN] 500 mg PO BID 06/28/15 11/05/18 Unknown Paliperidone Palmitate [Invega 156 mg IM QMONTH 11/05/18 11/05/18 Unknown Sustenna] diphenhydrAMINE [Benadryl CAP] 100 mg PO DAILY 11/05/18 11/05/18 Unknown haloperidoL [Haldol] 10 mg PO HS 11/05/18 11/05/18 Unknown Previous Rx's Medication Instructions Recorded Last Taken Type Ibuprofen [Motrin 800 MG tab] 800 mg PO Q8HR PRN #30 tablet 03/29/21 Unknown Rx Allergies Allergy/AdvReac Type Severity Reaction Status Date / Time aripiprazole [From Abilify] Allergy Vomiting Verified 10/04/17 07:08 iloperidone [From Fanapt] Allergy Unknown Verified 11/05/18 04:42 risperidone [From Risperdal] Allergy Bleeding Verified 10/04/17 07:08 ziprasidone HCl [From Geodon] Allergy Vomiting Verified 10/04/17 07:08 ziprasidone mesylate Allergy Vomiting Verified 10/04/17 07:08 [From Tamar] ED Review of Systems ROS: Stated complaint: DIABETIC Other details as noted in HPI Constitutional: denies: chills, fever Eyes: denies: eye pain, eye discharge, vision change ENT: denies: ear pain, throat pain Respiratory: denies: cough, shortness of breath, wheezing Cardiovascular: denies: chest pain, palpitations Endocrine: no symptoms reported Gastrointestinal: denies: abdominal pain, nausea, diarrhea Genitourinary: denies: urgency, dysuria, discharge Musculoskeletal: denies: back pain, joint swelling, arthralgia Skin: denies: rash, lesions Neurological: denies: headache, weakness, paresthesias Psychiatric: denies: anxiety, depression Hematological/Lymphatic: denies: easy bleeding, easy bruising ED Past Medical Hx - Past Medical History Previous Medical History?: Yes Hx Diabetes: Yes Hx Psychiatric Treatment: Yes (schizophrenia) Hx Asthma: Yes Additional medical history: thyroid goiter, ectopic 2006. back pain, Anemia - Surgical History Past Surgical History?: Yes Additional Surgical History: ectopic 2006 - Social History Smoking Status: Current Every Day Smoker - Medications Home Medications: Home Medications Medication Instructions Recorded Confirmed Last Taken Type Benztropine [Cogentin] 1 mg PO BID 06/28/15 11/05/[address] [DepaKOTE DR] 500 mg PO BID 06/28/15 11/05/18 Unknown History Paliperidone Palmitate [Invega 156 mg IM QMONTH 11/05/18 11/05/18 Unknown History Sustenna] diphenhydrAMINE [Benadryl CAP] 100 mg PO DAILY 11/05/18 11/05/18 Unknown History haloperidoL [Haldol] 10 mg PO HS 11/05/18 11/05/18 Unknown History Ibuprofen [Motrin 800 MG tab] 800 mg PO Q8HR PRN #30 tablet 03/29/21 Unknown Rx ED Physical Exam - General Limitations: No Limitations General appearance: alert, in no apparent distress - Head Head exam: Present: atraumatic, normocephalic, normal inspection - Eye Eye exam: Present: normal appearance, PERRL, EOMI Pupils: Present: normal accommodation - ENT ENT exam: Present: normal exam, normal orophraynx, mucous membranes moist, TM's normal bilaterally, normal external ear exam - Neck Neck exam: Present: normal inspection, full ROM - Respiratory Respiratory exam: Present: normal lung sounds bilaterally. Absent: respiratory distress, wheezes, rales, rhonchi, accessory muscle use, decreased breath sounds, prolonged expiratory - Cardiovascular Cardiovascular Exam: Present: regular rate, normal rhythm, normal heart sounds. Absent: systolic murmur, diastolic murmur, rubs, gallop - GI/Abdominal GI/Abdominal exam: Present: soft, normal bowel sounds. Absent: distended, tenderness, guarding, rebound, hyperactive bowel sounds, hypoactive bowel sounds, organomegaly - Extremities Exam Extremities exam: Present: normal inspection, full ROM, normal capillary refill - Back Exam Back exam: Present: normal inspection, full ROM. Absent: tenderness, CVA tenderness (R), CVA tenderness (L), muscle spasm, paraspinal tenderness, vertebral tenderness - Neurological Exam Neurological exam: Present: alert, oriented X3, CN II-XII intact, normal gait, reflexes normal - Psychiatric Psychiatric exam: Present: anxious, flat affect, manic. Absent: agitated, homicidal ideation, suicidal ideation - Skin Skin exam: Present: warm, dry, intact, normal color. Absent: rash ED Medical Decision Making - Medical Decision Making This is a 41-year-old -Swazi female with a history of paranoid schizophrenia, anxiety and depression and asthma who presented to the ED requesting blood test after she missed menstrual cycle over 1 week ago. Patient states that her LMP was August 20, 2021 and that she did not get her cycle in August. Patient states that she suspected she may be and has had 4 home based test 3 of which were negative and only one was positive. In the ED, patient is alert and oriented x3 and is not in any distress. Urine hCG test was negative. Patient will discharge home and advised to follow-up with her primary care physician as needed. Patient is otherwise advised return to the ED immediately if symptoms get worse. - Differential Diagnosis Anxiety; ; depression; psychosis Critical care attestation.: If time is entered above; I have spent that time in minutes in the direct care of this critically ill patient, excluding procedure time. ED Disposition Clinical Impression: test negative, Well adult on routine health check Disposition: 01 HOME / SELF CARE / HOMELESS Is pt being admited?: No Does the pt Need Aspirin: No Condition: Stable Instructions: Home Test Information, Preventive Care 21-39 Years Old, Female Additional Instructions: The test performed in the ED was negative. Therefore follow-up with your primary care physician as needed. Referrals: [facility] [Provider Group] - 3-5 Days Time of Disposition: 02:32 Print Language: TANZANIAN
== END 2021-10-01 02:56 | disposition home or self-care (01) ==
LOC: ED 20:36
DX: Z32.02 Encounter for pregnancy test, result negative (principal); E11.9 Type 2 diabetes mellitus without complications; F20.9 Schizophrenia, unspecified; J45.909 Unspecified asthma, uncomplicated; Z79.899 Other long term (current) drug therapy; Z88.8 Allergy status to other drugs, medicaments and biological substances
CPT/HCPCS: 36415; 84703; 99283

== ENCOUNTER 2021-10-07 01:56 | Emergency (ER) | payer BC, MEDICARE ==
--- NOTE | 2021-10-07 03:19 | Emergency Department Report ---
ED General Adult HPI - General Chief complaint: Pain General Stated complaint: MULTIPLE ISSUES Time Seen by Provider: 10/07/21 03:16 Source: patient Mode of arrival: Ambulatory Limitations: No Limitations - History of Present Illness Initial comments: Is a 41-year-old -[place] female with a history of depression, schizophrenia, Goiter, and HTN, who presents for constipation x 2 days, pt states she is , LMP 2 months ago, patient denies fevers or chills , states intermittent nausea vomiting in a.m. patient states she took a home test that was positive, and is concerned for constipation. Last bowel movement 2 days ago, normal. - Related Data Home Medications Medication Instructions Recorded Confirmed Last Taken Benztropine [Cogentin] 1 mg PO BID 06/28/15 11/05/[address] [DepaKOTE DR] 500 mg PO BID 06/28/15 11/05/18 Unknown Paliperidone Palmitate [Invega 156 mg IM QMONTH 11/05/18 11/05/18 Unknown Sustenna] diphenhydrAMINE [Benadryl CAP] 100 mg PO DAILY 11/05/18 11/05/18 Unknown haloperidoL [Haldol] 10 mg PO HS 11/05/18 11/05/18 Unknown Previous Rx's Medication Instructions Recorded Last Taken Type Ibuprofen [Motrin 800 MG tab] 800 mg PO Q8HR PRN #30 tablet 03/29/21 Unknown Rx bisacodyL [Dulcolax suppos] 10 mg MD QDAY PRN #7 supp.rect 10/07/21 Unknown Rx polyethylene glycoL 3350 [Miralax 17 gm PO BID PRN #14 packet 10/07/21 Unknown Rx 3350] Allergies Allergy/AdvReac Type Severity Reaction Status Date / Time aripiprazole [From Abilify] Allergy Vomiting Verified 10/07/21 02:28 iloperidone [From Fanapt] Allergy Unknown Verified 10/07/21 02:28 risperidone [From Risperdal] Allergy Bleeding Verified 10/07/21 02:28 ziprasidone HCl [From Geodon] Allergy Vomiting Verified 10/07/21 02:28 ziprasidone mesylate Allergy Vomiting Verified 10/07/21 02:28 [From Geodon] ED Review of Systems ROS: Stated complaint: MULTIPLE ISSUES Other details as noted in HPI Constitutional: denies: chills, fever Eyes: denies: eye pain, eye discharge, vision change ENT: denies: ear pain, throat pain Respiratory: denies: cough, shortness of breath, wheezing Cardiovascular: as per HPI Endocrine: no symptoms reported Gastrointestinal: abdominal pain, nausea, vomiting, constipation. denies: diarrhea, hematemesis, melena, hematochezia Genitourinary: as per HPI. denies: urgency, dysuria, frequency, hematuria, discharge Musculoskeletal: denies: back pain, joint swelling, arthralgia Skin: denies: rash, lesions Neurological: denies: headache, weakness, paresthesias Psychiatric: denies: anxiety, depression Hematological/Lymphatic: denies: easy bleeding, easy bruising ED Past Medical Hx - Past Medical History Hx Diabetes: Yes Hx Psychiatric Treatment: Yes (schizophrenia) Hx Asthma: Yes Additional medical history: thyroid goiter, ectopic 2006. back pain, Anemia - Surgical History Past Surgical History?: No Additional Surgical History: ectopic 2006 - Social History Smoking Status: Current Every Day Smoker - Medications Home Medications: Home Medications Medication Instructions Recorded Confirmed Last Taken Type Benztropine [Cogentin] 1 mg PO BID 06/28/15 11/05/[address] [DepaKOTE DR] 500 mg PO BID 06/28/15 11/05/18 Unknown History Paliperidone Palmitate [Invega 156 mg IM QMONTH 11/05/18 11/05/18 Unknown History Sustenna] diphenhydrAMINE [Benadryl CAP] 100 mg PO DAILY 11/05/18 11/05/18 Unknown History haloperidoL [Haldol] 10 mg PO HS 11/05/18 11/05/18 Unknown History Ibuprofen [Motrin 800 MG tab] 800 mg PO Q8HR PRN #30 tablet 03/29/21 Unknown Rx bisacodyL [Dulcolax suppos] 10 mg MD QDAY PRN #7 supp.rect 10/07/21 Unknown Rx polyethylene glycoL 3350 [Miralax 17 gm PO BID PRN #14 packet 10/07/21 Unknown Rx 3350] ED Physical Exam - General Limitations: No Limitations General appearance: alert, in no apparent distress - Head Head exam: Present: normocephalic, normal inspection - Eye Eye exam: Present: normal appearance, PERRL, EOMI Pupils: Present: normal accommodation - ENT ENT exam: Present: normal orophraynx, mucous membranes moist - Neck Neck exam: Present: normal inspection, full ROM - Respiratory Respiratory exam: Present: normal lung sounds bilaterally. Absent: respiratory distress, wheezes, rhonchi, chest wall tenderness - Cardiovascular Cardiovascular Exam: Present: regular rate, normal rhythm, normal heart sounds. Absent: systolic murmur, diastolic murmur, rubs, gallop - GI/Abdominal GI/Abdominal exam: Present: soft, normal bowel sounds. Absent: distended, tenderness, guarding, rebound, rigid, bruit - Expanded GI/Abdominal Exam Expanded GI/Abdominal exam: Absent: psoas sign, obturator sign, Choi's sign, Rovsing's sign, tenderness at Mcburney's Point - Rectal Rectal exam: Present: deferred - External exam: Present: normal external exam - Extremities Exam Extremities exam: Present: normal inspection, normal capillary refill. Absent: full ROM, tenderness - Back Exam Back exam: Present: normal inspection, full ROM. Absent: tenderness, CVA tenderness (R), CVA tenderness (L) - Neurological Exam Neurological exam: Present: alert, oriented X3, CN II-XII intact - Psychiatric Psychiatric exam: Present: normal affect, normal mood - Skin Skin exam: Present: warm, dry, intact, normal color. Absent: rash ED Course Vital Signs 10/07/21 02:25 Temperature 97.9 F Pulse Rate 91 H Respiratory 18 Rate Blood Pressure 140/57 O2 Sat by Pulse 100 Oximetry ED Medical Decision Making - Lab Data Result diagrams: 10/07/21 03:32 10/07/21 03:32 Labs 10/07/21 10/07/21 10/07/21 03:32 03:32 03:32 WBC 6.0 RBC 4.75 Hgb 12.2 Hct 38.8 MCV 82 MCH 26 L MCHC 32 RDW 14.6 Plt Count 247 Lymph % (Auto) 31.8 [place] % (Auto) 12.6 H Eos % (Auto) 2.5 Baso % (Auto) 0.4 Lymph # (Auto) 1.9 [place] # (Auto) 0.7 Eos # (Auto) 0.2 Baso # (Auto) 0.0 Seg Neutrophils % 52.7 Seg Neutrophils # 3.1 Sodium 138 Potassium 4.1 Chloride 104.0 Carbon Dioxide 22 Anion Gap 16 BUN 10 Creatinine 0.7 Estimated GFR > 60 BUN/Creatinine Ratio 14 Glucose 101 H Calcium 8.5 Total Bilirubin 0.20 AST 12 ALT 6 L Alkaline Phosphatase 77 Total Protein 6.9 Albumin 3.9 Albumin/Globulin Ratio 1.3 HCG, Quant < 2 - Medical Decision Making Symptoms are improved with medications given in ED. Labs are normal, hCG less than 2, chest x-ray normal no infiltration or opacities. Incidental finding KUB Critical care attestation.: If time is entered above; I have spent that time in minutes in the direct care of this critically ill patient, excluding procedure time. ED Disposition Clinical Impression: Constipation Qualifiers: Constipation type: unspecified constipation type Qualified Code(s): K59.00 - Constipation, unspecified Disposition: HOME / SELF CARE / HOMELESS Is pt being admited?: No Does the pt Need Aspirin: No Condition: Stable Instructions: Constipation, Adult Additional Instructions: Take medications as prescribed, hydrate as directed. Follow-up with your doctor in 2 to 3 days. Return to emergency department if symptoms worsen. Prescriptions: bisacodyL [Dulcolax suppos] 10 mg MD QDAY PRN #7 supp.rect PRN Reason: constipation polyethylene glycoL 3350 [Miralax 3350] 17 gm PO BID PRN #14 packet PRN Reason: Constipation Forms: Work/School Release Form(ED) Time of Disposition: 06:10
[2021-10-07 03:56] LABS: Basophils % (Auto) 0.4 % (0.0-1.8); Eosinophils # (Auto) 0.2 K/mm3 (0.0-0.4); Eosinophils % (Auto) 2.5 % (0.0-4.3); Hematocrit 38.8 % (30.3-42.9); Hemoglobin 12.2 gm/dl (10.1-14.3); Lymphocytes # (Auto) 1.9 K/mm3 (1.2-5.4); Lymphocytes % (Auto) 31.8 % (13.4-35.0); Mean Corpuscular HGB Conc 32 % (30-34); Mean Corpuscular Volume 82 fl (79-97); Monocytes # (Auto) 0.7 K/mm3 (0.0-0.8); Monocytes % (Auto) 12.6 % (0.0-7.3); Platelet Count 247 K/mm3 (140-440); Red Blood Count 4.75 M/mm3 (3.65-5.03); Red Cell Distribution Width 14.6 % (13.2-15.2)
[2021-10-07 04:03] LABS: Alanine Aminotransferase 6 units/L (7-56); Albumin 3.9 g/dL (3.9-5); Blood Urea Nitrogen 10 mg/dL (7-17); Calcium 8.5 mg/dL (8.4-10.2); Hemolysis Index 4
[2021-10-07 04:06] LABS: BUN/Creatinine Ratio 14
--- NOTE | 2021-10-07 06:26 | XRay Report ---
ABDOMEN 2 VIEW(S) INDICATION / CLINICAL INFORMATION: abd pain constipation. COMPARISON: None available. FINDINGS: TUBES / LINES: None. BOWEL GAS PATTERN: No significant abnormality. FREE AIR / EXTRALUMINAL GAS: None seen. ADDITIONAL FINDINGS: No significant additional findings. IMPRESSION: 1. No significant abnormality. Signer Name: Mohsen Chakraborty MD Signed: 10/07/2021 6:22 AM Workstation Name: [id number]
[2021-10-07 06:49] VITALS: BP 129/59
== END 2021-10-07 06:43 | disposition home or self-care (01) ==
LOC: ED 01:56
DX: O26.891 Other specified pregnancy related conditions, first trimester (principal); K59.00 Constipation, unspecified; Z3A.01 Less than 8 weeks gestation of pregnancy
CPT/HCPCS: 36415; 74018; 80053; 84702; 85025; 99283

== ENCOUNTER 2021-10-09 16:49 | Emergency (ER) | payer BC, MEDICARE ==
[2021-10-09 16:58] VITALS: BP 141/85
--- NOTE | 2021-10-09 17:19 | Emergency Department Report ---
HPI - General Chief Complaint: Medical Clearance - HPI HPI: MSE 7 The patient is a 41-year-old female present with a chief complaint of "need help stopping cigarette smoking." The patient states she came to the emergency department because she needs help quitting cigarettes. The patient states she is use Nicorette transdermal patches but they have not helped. Patient states that the maximum dose she has used was 14. Patient denies suicidal or homicidal ideation. Patient denies auditory visual hallucinations. Patient denies any other complaints ED Past Medical Hx - Past Medical History Hx Diabetes: Yes Hx Psychiatric Treatment: Yes (schizophrenia) Hx Asthma: Yes Additional medical history: thyroid goiter, ectopic 2006. back pain, Anemia - Surgical History Additional Surgical History: ectopic 2006 - Family History Family history: no significant - Social History Smoking Status: Current Every Day Smoker (1 pack/day) Substance Use Type: None (Denies illicit drug use) - Medications Home Medications: Home Medications Medication Instructions Recorded Confirmed Last Taken Type Benztropine [Cogentin] 1 mg PO BID 06/28/15 11/05/[address] [DepaKOTE DR] 500 mg PO BID 06/28/15 11/05/18 Unknown History Paliperidone Palmitate [Invega 156 mg IM QMONTH 11/05/18 11/05/18 Unknown History Sustenna] diphenhydrAMINE [Benadryl CAP] 100 mg PO DAILY 11/05/18 11/05/18 Unknown History haloperidoL [Haldol] 10 mg PO HS 11/05/18 11/05/18 Unknown History Ibuprofen [Motrin 800 MG tab] 800 mg PO Q8HR PRN #30 tablet 03/29/21 Unknown Rx bisacodyL [Dulcolax suppos] 10 mg MI QDAY PRN #7 supp.rect 10/07/21 Unknown Rx polyethylene glycoL 3350 [Miralax 17 gm PO BID PRN #14 packet 10/07/21 Unknown Rx 3350] Nicotine [Habitrol] 21 mg TD DAILY #20 patch 10/09/21 Unknown Rx ED Review of Systems ROS: Stated complaint: DARIN Other details as noted in HPI Constitutional: no symptoms reported Eyes: denies: eye pain ENT: denies: throat pain Respiratory: no symptoms reported Cardiovascular: denies: chest pain Endocrine: no symptoms reported Gastrointestinal: denies: abdominal pain Musculoskeletal: denies: back pain Neurological: denies: headache Psychiatric: denies: auditory hallucinations, visual hallucinations, homicidal thoughts, suicidal thoughts Physical Exam - Physical Exam Vital Signs: Vital Signs 10/09/21 16:56 Temperature 98.4 F Pulse Rate 107 H Respiratory 20 Rate Blood Pressure 141/85 O2 Sat by Pulse 97 Oximetry Physical Exam: GENERAL: The patient is well-developed well-nourished female sitting in chair not appearing to be in acute distress. [] HEENT: Normocephalic. Atraumatic. Extraocular motions are intact. Patient has moist mucous membranes. NECK: Supple. Trachea midline CHEST/LUNGS: Clear to auscultation. There is no respiratory distress noted. HEART/CARDIOVASCULAR: Regular. There is no gallop rub or murmur. ABDOMEN: Abdomen is soft, nontender. Patient has normal bowel sounds. There is no abdominal distention. SKIN: There is no rash. There is no edema. There is no diaphoresis. NEURO: The patient is awake, alert, and oriented. Patient is calm and appropriate. The patient is cooperative. The patient has no focal neurologic deficits. The patient has normal speech. GCS 15 MUSCULOSKELETAL: There is no evidence of acute injury. ED Course Vital Signs 10/09/21 16:56 Temperature 98.4 F Pulse Rate 107 H Respiratory 20 Rate Blood Pressure 141/85 O2 Sat by Pulse 97 Oximetry ED Medical Decision Making - Differential Diagnosis Nicotine dependence Critical care attestation.: If time is entered above; I have spent that time in minutes in the direct care of this critically ill patient, excluding procedure time. ED Disposition Clinical Impression: Encounter for smoking cessation counseling, Nicotine dependence Disposition: 01 HOME / SELF CARE / HOMELESS Is pt being admited?: No Does the pt Need Aspirin: No Condition: Stable Instructions: Steps to Quit Smoking, [id number] Additional Instructions: Return to the emergency department should you develop worsening symptoms, inability to tolerate food or liquids, high fever or any other concerns Prescriptions: Nicotine [Habitrol] 21 mg TD DAILY #20 patch [facility] Time of Disposition: 17:16
== END 2021-10-09 17:38 | disposition home or self-care (01) ==
LOC: ED 16:49
DX: Z71.6 Tobacco abuse counseling (principal); F17.200 Nicotine dependence, unspecified, uncomplicated; E11.8 Type 2 diabetes mellitus with unspecified complications; F20.9 Schizophrenia, unspecified; J45.909 Unspecified asthma, uncomplicated; Z98.890 Other specified postprocedural states
CPT/HCPCS: 99282

== ENCOUNTER 2021-10-14 05:13 | Emergency (ER) | payer BC, MEDICARE ==
[2021-10-14 07:29] VITALS: BP 115/76
--- NOTE | 2021-10-14 07:32 | Emergency Department Report ---
Chief Complaint: Medical Clearance Stated Complaint: SORE THROAT Time Seen by Provider: 10/14/21 07:28 - HPI History of Present Illness: 41-year-old morbid obese -[place] female presents to the emergency room asking for a prescription for nicotine gum. Patient does have a primary care provider at [facility]. She also reports that she has intermittent pain in her neck at her Goiter site. She denies any fever chills no nausea no vomiting no loss of weight no headaches. - Exam Vital Signs: Vital Signs 10/14/21 05:16 Temperature 98.3 F Pulse Rate 98 H Respiratory 18 Rate Blood Pressure 115/76 O2 Sat by Pulse 96 Oximetry Physical Exam: General: Awake, appropriately interactive, no acute distress. Neck: Supple. Full range of motion intact. Goiter appreciated Cardiovascular: Normal peripheral perfusion. Pulmonary: No respiratory distress. Patient is speaking normally without use of accessory muscles. Skin: No apparent rashes or lesions. Neurological: No facial asymmetry. Speech is clear. Follows commands. Patient is alert and oriented. Musculoskeletal: Full range of motion, no crepitus. No tenderness to palpate nonerythematous no edema test appreciated. Able to bear weight and ambulate without difficulty. Distal neurovascular and motor/sensory function is intact. Psych: Cooperative. Appropriate mood and affect. MSE screening note: Focused history and physical exam performed. Due to findings the following was ordered: ED Medical Decision Making - Medical Decision Making 41-year-old morbid obese -[place] female presents to the emergency room asking for a prescription for nicotine gum. Patient does have a primary care provider at [facility]. She also reports that she has intermittent pain in her neck at her Goiter site. She denies any fever chills no nausea no vomiting no loss of weight no headaches. Discussed with patient she can follow-up at her primary care provider for prescription for nicotine gum. Also discussed with patient that she can follow- up with her primary care provider regards to her neck concern. Patient verbalized understanding ED Disposition for MSE Disposition: 01 HOME / SELF CARE / HOMELESS Is pt being admited?: No Does the pt Need Aspirin: No Condition: Stable Additional Instructions: Follow-up with your primary care provider for your prescription for nicotine gum and your chronic Goitor. Referrals: [facility] [Provider Group] - 3-5 Days Time of Disposition: 07:32
== END 2021-10-14 09:29 | disposition home or self-care (01) ==
LOC: ED 05:13
DX: J02.9 Acute pharyngitis, unspecified (principal); M54.2 Cervicalgia; Z76.0 Encounter for issue of repeat prescription
CPT/HCPCS: 99282

== ENCOUNTER 2021-10-17 23:47 | Emergency (ER) | payer BC, MEDICARE ==
[2021-10-18] MEDS ORDERED: diphenhydrAMINE 50 MG/ML VIAL IM ONE (00:15)
[2021-10-18] MEDS ORDERED: HALOPERIDOL LACTATE 5 MG/1 ML INJ IM ONE (00:15)
[2021-10-18] MEDS ORDERED: LORazepam 2 MG/ML VIAL IM ONE (00:15)
--- NOTE | 2021-10-18 00:23 | Event Note ---
41-year-old female heard yelling and threatening staff in the waiting room demanding to know what her recent test was negative. Patient insisting that something is in her stomach. Positive history of schizophrenia and exhibiting psychosis. Haldol Benadryl, Ativan ordered, labs, and ED 1013 ordered for psychosis with agitation however, patient eloped prior to receiving meds
== END 2021-10-19 04:29 ==
LOC: ED 23:47
DX: Z01.89 Encounter for other specified special examinations (principal); Z53.21 Procedure and treatment not carried out due to patient leaving prior to being seen by health care provider
CPT/HCPCS: J1200; J1630; J2060

== ENCOUNTER 2022-02-01 13:50 | Emergency (ER) | payer MEDICARE ==
[2022-02-01 19:37] LABS: Bilirubin,Urine NEG (Negative); Blood,Urine NEG (Negative); Color,Urine Yellow (Yellow); HCG Qualitative,Urine Negative (Negative); Mucus,Urine FEW /HPF; Protein,Urine <15 mg/dL mg/dL (Negative); Urobilinogen,Urine < 2.0 mg/dL (<2.0)
--- NOTE | 2022-02-01 20:26 | Emergency Department Report ---
<JEREMY MAGAÑA - Last Filed: 02/01/22 20:22> ED General Adult HPI - General Chief complaint: Nausea/Vomiting/Diarrhea Stated complaint: NAUSEOUS Time Seen by Provider: 02/01/22 20:08 Source: patient Mode of arrival: Ambulatory Limitations: No Limitations - History of Present Illness Initial comments: -year-old female who presents for pain to buttocks and bilateral thighs. Secondary complaint of urinary frequency and urgency. Patient denies vaginal discharge denies possibility of STI there is no fevers no chills no hematuria. Muscular pain is 5/10 exacerbated by work duties. Patient works as retail pharmacy technician. Patient denies fall injury or other trauma. Pain for the past 3 days. Patient denies other complaint. Patient is currently alert oriented x3 amatory steady gait no acute distress. Severity scale (0 -10): 0 - Related Data Home Medications Medication Instructions Recorded Confirmed Last Taken Benztropine [Cogentin] 1 mg PO BID 06/28/15 11/05/[address] [DepColleen DR] 500 mg PO BID 06/28/15 11/05/18 Unknown Paliperidone Palmitate [Invega 156 mg IM QMONTH 11/05/18 11/05/18 Unknown Sustenna] diphenhydrAMINE [Benadryl CAP] 100 mg PO DAILY 11/05/18 11/05/18 Unknown haloperidoL [Haldol] 10 mg PO HS 11/05/18 11/05/18 Unknown Previous Rx's Medication Instructions Recorded Last Taken Type Ibuprofen [Motrin 800 MG tab] 800 mg PO Q8HR PRN #30 tablet 03/29/21 Unknown Rx bisacodyL [Dulcolax suppos] 10 mg [place] QDAY PRN #7 supp.rect 10/07/21 Unknown Rx polyethylene glycoL 3350 [Miralax 17 gm PO BID PRN #14 packet 10/07/21 Unknown Rx 3350] Nicotine [Habitrol] 21 mg TD DAILY #20 patch 10/09/21 Unknown Rx Ibuprofen [Motrin 800 MG tab] 800 mg PO Q8HR PRN #30 tablet 02/01/22 Unknown Rx Menthol/Camphor [[place] 1 applicatio TP Q6H PRN #1 tube 02/01/22 Unknown Rx Ointment] cephALEXin [Keflex] 500 mg PO BID 7 Days #14 cap 02/01/22 Unknown Rx Allergies Allergy/AdvReac Type Severity Reaction Status Date / Time aripiprazole [From Abilify] Allergy Vomiting Verified 10/07/21 02:28 iloperidone [From Fanapt] Allergy Unknown Verified 10/07/21 02:28 risperidone [From Risperdal] Allergy Bleeding Verified 10/07/21 02:28 ziprasidone HCl [From Geodon] Allergy Vomiting Verified 10/07/21 02:28 ziprasidone mesylate Allergy Vomiting Verified 10/07/21 02:28 [From Geodon] ED Review of Systems Constitutional: denies: chills, fever Eyes: denies: eye pain, eye discharge, vision change ENT: denies: ear pain, throat pain Respiratory: denies: cough, shortness of breath, wheezing Cardiovascular: denies: chest pain, palpitations Endocrine: no symptoms reported Gastrointestinal: denies: abdominal pain, nausea, vomiting, diarrhea Genitourinary: urgency, dysuria, frequency. denies: hematuria, discharge, dyspareunia Musculoskeletal: other (Bilateral thigh and buttocks muscular pain). denies: back pain, joint swelling, arthralgia Skin: denies: rash, lesions Neurological: denies: headache, weakness, paresthesias Psychiatric: denies: anxiety, depression Hematological/Lymphatic: denies: easy bleeding, easy bruising ED Past Medical Hx - Past Medical History Hx Diabetes: Yes Hx Psychiatric Treatment: Yes (schizophrenia) Hx Asthma: Yes Additional medical history: thyroid goiter, ectopic 2006. back pain, Anemia - Surgical History Additional Surgical History: ectopic 2006 - Social History Smoking Status: Current Every Day Smoker (1 pack/day) Substance Use Type: None (Denies illicit drug use) - Medications Home Medications: Home Medications Medication Instructions Recorded Confirmed Last Taken Type Benztropine [Cogentin] 1 mg PO BID 06/28/15 11/05/[address] [Sam DR] 500 mg PO BID 06/28/15 11/05/18 Unknown History Paliperidone Palmitate [Invega 156 mg IM QMONTH 11/05/18 11/05/18 Unknown History Sustenna] diphenhydrAMINE [Benadryl CAP] 100 mg PO DAILY 11/05/18 11/05/18 Unknown History haloperidoL [Haldol] 10 mg PO HS 11/05/18 11/05/18 Unknown History Ibuprofen [Motrin 800 MG tab] 800 mg PO Q8HR PRN #30 tablet 03/29/21 Unknown Rx bisacodyL [Dulcolax suppos] 10 mg [place] QDAY PRN #7 supp.rect 10/07/21 Unknown Rx polyethylene glycoL 3350 [Miralax 17 gm PO BID PRN #14 packet 10/07/21 Unknown Rx 3350] Nicotine [Habitrol] 21 mg TD DAILY #20 patch 10/09/21 Unknown Rx Ibuprofen [Motrin 800 MG tab] 800 mg PO Q8HR PRN #30 tablet 02/01/22 Unknown Rx Menthol/Camphor [[place] 1 applicatio TP Q6H PRN #1 tube 02/01/22 Unknown Rx Ointment] cephALEXin [Keflex] 500 mg PO BID 7 Days #14 cap 02/01/22 Unknown Rx ED Physical Exam - General Limitations: No Limitations General appearance: alert, in no apparent distress - Head Head exam: Present: atraumatic, normocephalic - Eye Eye exam: Present: normal appearance, EOMI Pupils: Present: normal accommodation - ENT ENT exam: Present: mucous membranes moist - Neck Neck exam: Present: normal inspection, full ROM, thyromegaly (This is a chronic condition for this patient right). Absent: tenderness - Respiratory Respiratory exam: Present: normal lung sounds bilaterally. Absent: respiratory distress, wheezes, chest wall tenderness - Cardiovascular Cardiovascular Exam: Present: regular rate, normal rhythm, normal heart sounds. Absent: systolic murmur, diastolic murmur, rubs, gallop - GI/Abdominal GI/Abdominal exam: Present: soft, normal bowel sounds. Absent: distended, tenderness - Rectal Rectal exam: Present: deferred - External exam: Present: other (Deferred) - Extremities Exam Extremities exam: Present: normal inspection, full ROM, tenderness (Bilateral anterior thigh and buttocks muscular pain repeated to the by deep palpation. There is no erythema no ecchymosis no step-off no crepitus. Range of motion intact unrestricted to all quadrants distal pulses intact +2. 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 Absent: pedal edema - Back Exam Back exam: Present: normal inspection, full ROM. Absent: tenderness, CVA tenderness (R), CVA tenderness (L) - Neurological Exam Neurological exam: Present: alert, oriented X3, CN II-XII intact, normal gait, reflexes normal. Absent: motor sensory deficit - Expanded Neurological Exam Expanded Patient oriented to: Present: person, place, time Speech: Present: fluid speech Motor strength exam: RUE: 5, LUE: 5, RLE: 5, LLE: 5 Best Eye Response ([place]): (4) open spontaneously Best Motor Response ([place]): (6) obeys commands Best Verbal Response (Best): (5) oriented Best Total: 15 - Psychiatric Psychiatric exam: Present: normal affect, normal mood - Skin Skin exam: Present: warm, dry, intact, normal color. Absent: rash ED Medical Decision Making - Lab Data Labs 02/01/22 Unknown Urine Color Yellow Urine Turbidity Clear Urine pH 5.0 Ur Specific [place] 1.023 Urine Protein <15 mg/dl Urine Glucose (UA) Neg Urine Ketones Neg Urine Blood Neg Urine Nitrite Neg Urine Bilirubin Neg Urine Urobilinogen < 2.0 Ur Leukocyte Esterase Mod Urine WBC (Auto) 2.0 Urine RBC (Auto) 6.0 U Epithel Cells (Auto) 6.0 Urine Mucus Few Urine HCG, Qual Negative - Radiology Data Radiology results: report reviewed, image reviewed - Medical Decision Making UA noted for moderate leukocytes bacteria. Musculoskeletal exam as above.'s pulses intact range of motion is intact there is no abrasion laceration or swelling. No deformity. Pain is reproducible to deep palpation. Patient is alert oriented x3 amatory with no acute distress plan treat for UTI, NSAIDs as needed muscular pain. Moist heat therapy. Follow-up with primary care doctor in 2 to 3 days. Patient verbalized agreement understanding of discharge plan. Patient DC'd home stable condition at this time. ED Disposition Clinical Impression: Musculoskeletal pain of extremity UTI (urinary tract infection) Qualifiers: Urinary tract infection type: acute cystitis Hematuria presence: without hematuria Qualified Code(s): N30.00 - Acute cystitis without hematuria Disposition: HOME / SELF CARE / HOMELESS Is pt being admited?: No Does the pt Need Aspirin: No Condition: Stable Instructions: Urinary Tract Infection, Adult, [id number], Musculoskeletal Pain Additional Instructions: Take medication as prescribed, moist heat therapy as directed. Follow-up with your doctor in 2 to 3 days. Return to emergency department should symptoms worsen. Prescriptions: cephALEXin [Keflex] 500 mg PO BID 7 Days #14 cap Ibuprofen [Motrin 800 MG tab] 800 mg PO Q8HR PRN #30 tablet PRN Reason: pain Menthol/Camphor [[place] Ointment] 1 applicatio TP Q6H PRN #1 tube PRN Reason: pain Referrals: MAXWELL KLEIN MD [Primary Care Provider] - 3-5 Days Forms: Work/School Release Form(ED) Time of Disposition: 20:30 <DANIEL RYAN - Last Filed: 02/03/22 09:52> ED Review of Systems ROS: Stated complaint: NAUSEOUS Other details as noted in HPI ED Course Vital Signs 02/01/22 02/01/22 14:05 20:47 Temperature 98.0 F Pulse Rate 109 H 100 H Respiratory 16 12 Rate Blood Pressure 121/76 124/78 [Left] O2 Sat by Pulse 98 100 Oximetry ED Medical Decision Making - Medical Decision Making I have reviewed the PA/LINK TRAINER MECHANIC's note and plan of care. I was available for consultation as needed at all times during the patient's visit in the emergency department but was not consulted on this case. Critical care attestation.: If time is entered above; I have spent that time in minutes in the direct care of this critically ill patient, excluding procedure time.
[2022-02-01 20:48] VITALS: BP 124/78
== END 2022-02-01 20:48 | disposition home or self-care (01) ==
LOC: ED 13:50
DX: M79.606 Pain in leg, unspecified (principal); M79.643 Pain in unspecified hand; N39.0 Urinary tract infection, site not specified; F17.200 Nicotine dependence, unspecified, uncomplicated; J45.909 Unspecified asthma, uncomplicated; E11.9 Type 2 diabetes mellitus without complications; F20.9 Schizophrenia, unspecified; Z88.8 Allergy status to other drugs, medicaments and biological substances
CPT/HCPCS: 81001; 81025; 99283

== ENCOUNTER 2022-04-24 21:56 | Emergency (ER) | payer BC, MEDICARE ==
[2022-04-24 23:07] VITALS: BP 118/77
--- NOTE | 2022-04-25 07:42 | Event Note ---
ED Screening Note ED Screening Note: here 0700 flank pain This initial assessment/diagnostic orders/clinical plan/treatment(s) is/are subject to change based on patients health status, clinical progression and re- assessment by fellow clinical providers in the ED. Further treatment and workup at subsequent clinical providers discretion. Patient/guardian urged not to elope from the ED as their condition may be serious if not clinically assessed and managed. Initial orders include: ua
[2022-04-25 08:26] LABS: WBC,Urine < 1.0 /HPF (0.0-6.0)
[2022-04-25 08:56] LABS: Bilirubin,Urine Negative (Negative); Blood,Urine 1+ (Negative); Color,Urine Yellow (Yellow); Protein,Urine <15 mg/dL mg/dL (Negative)
--- NOTE | 2022-04-25 10:14 | Emergency Department Report ---
ED General Adult HPI - General Chief complaint: Abdominal Pain Stated complaint: PAIN ON SIDE Time Seen by Provider: 04/25/22 07:46 Source: patient Mode of arrival: Ambulatory Limitations: No Limitations - Related Data Home Medications Medication Instructions Recorded Confirmed Last Taken Benztropine [Cogentin] 1 mg PO BID 06/28/15 11/05/[address] [DepaKOTE DR] 500 mg PO BID 06/28/15 11/05/18 Unknown Paliperidone Palmitate [Invega 156 mg IM QMONTH 11/05/18 11/05/18 Unknown Sustenna] diphenhydrAMINE [Benadryl CAP] 100 mg PO DAILY 11/05/18 11/05/18 Unknown haloperidoL [Haldol] 10 mg PO HS 11/05/18 11/05/18 Unknown Previous Rx's Medication Instructions Recorded Last Taken Type Ibuprofen [Motrin 800 MG tab] 800 mg PO Q8HR PRN #30 tablet 03/29/21 Unknown Rx bisacodyL [Dulcolax suppos] 10 mg [place] QDAY PRN #7 supp.rect 10/07/21 Unknown Rx polyethylene glycoL 3350 [Miralax 17 gm PO BID PRN #14 packet 10/07/21 Unknown Rx 3350] Nicotine [Habitrol] 21 mg TD DAILY #20 patch 10/09/21 Unknown Rx Ibuprofen [Motrin 800 MG tab] 800 mg PO Q8HR PRN #30 tablet 02/01/22 Unknown Rx Menthol/Camphor [[place] 1 applicatio TP Q6H PRN #1 tube 02/01/22 Unknown Rx Ointment] cephALEXin [Keflex] 500 mg PO BID 7 Days #14 cap 02/01/22 Unknown Rx Allergies Allergy/AdvReac Type Severity Reaction Status Date / Time aripiprazole [From Abilify] Allergy Vomiting Verified 10/07/21 02:28 iloperidone [From Fanapt] Allergy Unknown Verified 10/07/21 02:28 risperidone [From Risperdal] Allergy Bleeding Verified 10/07/21 02:28 ziprasidone HCl [From Geodon] Allergy Vomiting Verified 10/07/21 02:28 ziprasidone mesylate Allergy Vomiting Verified 10/07/21 02:28 [From Geodon] ED Review of Systems ROS: Stated complaint: PAIN ON SIDE Other details as noted in HPI Comment: All other systems reviewed and negative ED Past Medical Hx - Past Medical History Previous Medical History?: Yes Hx Diabetes: Yes Hx Psychiatric Treatment: Yes (schizophrenia) Hx Asthma: Yes Additional medical history: thyroid goiter, ectopic 2006. back pain, Anemia - Surgical History Past Surgical History?: Yes Additional Surgical History: ectopic 2006 - Family History Family history: no significant - Social History Smoking Status: Current Every Day Smoker (1 pack/day) Substance Use Type: None (Denies illicit drug use) - Medications Home Medications: Home Medications Medication Instructions Recorded Confirmed Last Taken Type Benztropine [Cogentin] 1 mg PO BID 06/28/15 11/05/[address] [DepaKOTE DR] 500 mg PO BID 06/28/15 11/05/18 Unknown History Paliperidone Palmitate [Invega 156 mg IM QMONTH 11/05/18 11/05/18 Unknown History Sustenna] diphenhydrAMINE [Benadryl CAP] 100 mg PO DAILY 11/05/18 11/05/18 Unknown History haloperidoL [Haldol] 10 mg PO HS 11/05/18 11/05/18 Unknown History Ibuprofen [Motrin 800 MG tab] 800 mg PO Q8HR PRN #30 tablet 03/29/21 Unknown Rx bisacodyL [Dulcolax suppos] 10 mg [place] QDAY PRN #7 supp.rect 10/07/21 Unknown Rx polyethylene glycoL 3350 [Miralax 17 gm PO BID PRN #14 packet 10/07/21 Unknown Rx 3350] Nicotine [Habitrol] 21 mg TD DAILY #20 patch 10/09/21 Unknown Rx Ibuprofen [Motrin 800 MG tab] 800 mg PO Q8HR PRN #30 tablet 02/01/22 Unknown Rx Menthol/Camphor [[place] 1 applicatio TP Q6H PRN #1 tube 02/01/22 Unknown Rx Ointment] cephALEXin [Keflex] 500 mg PO BID 7 Days #14 cap 02/01/22 Unknown Rx ED Physical Exam - General Limitations: No Limitations General appearance: alert, in no apparent distress - Head Head exam: Present: atraumatic, normocephalic - Eye Eye exam: Present: normal appearance - ENT ENT exam: Present: mucous membranes moist - Neck Neck exam: Present: normal inspection - Respiratory Respiratory exam: Present: normal lung sounds bilaterally. Absent: respiratory distress - Cardiovascular Cardiovascular Exam: Present: regular rate, normal rhythm. Absent: systolic murmur, diastolic murmur, rubs, gallop - GI/Abdominal GI/Abdominal exam: Present: soft, normal bowel sounds - Extremities Exam Extremities exam: Present: normal inspection - Back Exam Back exam: Present: normal inspection - Neurological Exam Neurological exam: Present: alert, oriented X3 - Skin Skin exam: Present: warm, dry, intact, normal color. Absent: rash ED Course Vital Signs 04/24/22 22:43 Temperature 98 F Pulse Rate 96 H Respiratory 14 Rate Blood Pressure 118/77 [Right] O2 Sat by Pulse 98 Oximetry ED Medical Decision Making - Medical Decision Making Vital Signs 04/24/22 22:43 Temperature 98 F Pulse Rate 96 H Respiratory 14 Rate Blood Pressure 118/77 [Right] O2 Sat by Pulse 98 Oximetry Lab Results 04/25/22 Range/Units 08:08 Urine Color Yellow (Yellow) Urine Turbidity Clear (Clear) Urine pH 6.0 (5.0-7.0) Ur Specific [place] 1.020 (1.003-1.030) Urine Protein <15 mg/dl (Negative) mg/dL Urine Glucose (UA) Negative (Negative) mg/dL Urine Ketones Negative (Negative) mg/dL Urine Blood 1+ (Negative) Urine Nitrite Negative (Negative) Ur Reducing Substances Not Reportable Urine Bilirubin Negative (Negative) Urine Ictotest Not Reportable Urine Urobilinogen 0.0 (<2.0) mg/dL Ur Leukocyte Esterase 1+ (Negative) Urine WBC (Auto) < 1.0 (0.0-6.0) /HPF Urine RBC (Auto) 5.0 (0.0-6.0) /HPF U Epithel Cells (Auto) 2.0 (0-13.0) /HPF Critical care attestation.: If time is entered above; I have spent that time in minutes in the direct care of this critically ill patient, excluding procedure time. ED Disposition Clinical Impression: Schizophrenia, Non-adherence to medical treatment Disposition: HOME / SELF CARE / HOMELESS Is pt being admited?: No Does the pt Need Aspirin: No Condition: Stable Instructions: Abdominal Pain (ED), Schizophrenia Additional Instructions: DO NOT TAKE YOU HALDOL FOR PAIN USE MOTRIN OR TYLENOL FOR PAIN FOLLOW UP WITH PCP FOR ONGOING CARE SEE PSYCHIATRIC MD FOR YOUR PSYCH MEDS THERE IS A REFERRAL HERE FOR PCP- SEE BELOW DRINK A LOT OF WATER Referrals: LONDON MERCEDES MD [Primary Care Provider] - 3-5 Days ALESIA AVITIA MD [Staff Physician] - 3-5 Days Time of Disposition: 10:25
== END 2022-04-25 11:00 | disposition home or self-care (01) ==
LOC: ED 21:56
DX: F20.9 Schizophrenia, unspecified (principal); Z91.14 Patient's other noncompliance with medication regimen; E11.9 Type 2 diabetes mellitus without complications; J45.909 Unspecified asthma, uncomplicated; F17.200 Nicotine dependence, unspecified, uncomplicated; Z98.890 Other specified postprocedural states; Z88.8 Allergy status to other drugs, medicaments and biological substances; Z79.899 Other long term (current) drug therapy
CPT/HCPCS: 81001; 99283